=== PATIENT | male | born 1965 | race Caucasian/White ===

== ENCOUNTER 2020-01-27 21:28 | Observation (INO) | payer MEDICARE, SELFPAY ==
[2020-01-27 21:40] VITALS: BP 180/83; PULSE 82; RESP 16; TEMP 37.3; O2SAT 97; BMI 29.0
[2020-01-27 22:14] VITALS: PULSE 80
[2020-01-27 22:19] VITALS: BP 164/84; PULSE 85; RESP 14; O2SAT 98
--- NOTE | 2020-01-27 22:20 | XR_ITS ---
WS: [id number] LEFT FOOT: 3 VIEW(S) TECHNIQUE: AP, oblique and lateral. HISTORY: puncture wound COMPARISON: None available. No acute fracture or dislocation. Normal tarsal/metatarsal alignment. Moderate amount of soft tissue edema surrounding the LEFT foot. There is a linear metallic foreign radha dy measuring 1.8 cm in length in the plantar surface of the foot at the level of the second metatarsa l metaphysis. On the lateral projection this is embedded in the soft tissues approximately 6 mm deep to the surface of the skin. Remote avulsion fracture distal fibula. XR/XR foot LT min 3V* [id number] IMPRESSION: 1. Extensive soft tissue edema surrounding the LEFT foot consistent with cellu litis. 2. Foreign body embedded in the soft tissues plantar surface of the foot at th e level of the second metatarsal metaphysis. Visually appears to be part of a n eedle.
[2020-01-27 23:11] VITALS: BP 171/86; PULSE 93; RESP 14; O2SAT 96
[2020-01-27 23:18] LABS: Basophils % 0.2 %; Eosinophils # 0.1 10^3/uL (0.0-0.8); Eosinophils % 1.1 %; Hematocrit 41.2 % (42.0-52.0); Hemoglobin 13.4 g/dL (11.7-16.6); Lymphocytes # 0.9 10^3/uL (0.8-4.8); Lymphocytes % 10.8 %; Mean Corpuscular HGB Conc 32.5 g/dL (30.0-36.0); Mean Corpuscular Hemoglobin 26.4 pg (28.0-34.0); Mean Corpuscular Volume 81.1 fL (80-94); Mean Platelet Volume 11.4 fL (7.4-10.4); Monocytes # 0.6 10^3/uL (0.2-0.9); Monocytes % 7.2 %; Neutrophils # 6.76 10^3/uL (1.8-7.7); Neutrophils % 80.3 %; Nucleated Red Blood Cells % 0 %; Platelet Count 200 10^3/cmm (130-400); Red Blood Count 5.08 10^6/uL (4.1-5.3); Red Cell Distribution Width 13.1 % (12.1-15.1); White Blood Count 8.4 10^3/uL (4.0-10.0)
[2020-01-27 23:37] LABS: Lactate (Lactic Acid level) 0.9 mmol/L (0.5-2.2)
[2020-01-27 23:39] LABS: Alanine Aminotransferase 26 U/L (0-41); Albumin Level 4.3 g/dL (3.5-5.2); Alkaline Phosphatase 99 IU/L (40-130); Anion Gap 15.2 (5-19); Aspartate Amino Transferase 15 U/L (0-40); Blood Urea Nitrogen 10 mg/dL (6-20); C Reactive Protein 59.5 mg/L (0.0-4.9); Calcium 9.4 mg/dL (8.5-10.5); Carbon Dioxide 24 mmol/L (22-29); Chloride 98 mmol/L (98-107); Creatine Phosphokinase 105 U/L (39-308); Creatinine Clr Calc Pharmacy 150.5413; Globulin 2.8 g/dL (1.3-4.6); Glomerular Filtration Rate 116.7 mL/min (90-130); Glucose 318 mg/dL (65-115); Osmolality Calculated 287 mOsm/kg (285-295); Potassium 4.2 mmol/L (3.5-5.1); Sodium 133 mmol/L (136-145); Total Bilirubin 0.4 mg/dL (0.15-1.2); Total Protein 7.1 g/dL (6.6-8.7)
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
[2020-01-28] VITALS (15 sets, daily range): BP systolic 136–180; BP diastolic 76–89; PULSE 74–91; RESP 16–24; TEMP 36.6–37.6; O2SAT 94–99
--- NOTE | 2020-01-28 | SCC_ITS ---
Procedure Done: Removal of left foot foreign body under fluoroscopic guidance and All entire fluoroscopic interpretation was done by me through the whole entire procedure. 11.0 seconds of fluoroscopic guidance, for a cumulative dose of 0.17 mGy, was provided to Dr. Milligan by the radiology department. C-arm images of the LEFT foot were saved for the patient's permanent record. MARLY
--- NOTE | 2020-01-28 | XR_ITS ---
WS: [id number] C-ARM RADIOGRAPHS LEFT FOOT; 2 IMAGES HISTORY: Foreign body removal. COMPARISON: 01/27/2020 Intraoperative imaging during foreign body removal. XR/XR foot LT 2V [id number] IMPRESSION: Intraoperative imaging for foreign body removal.
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
[2020-01-28] MEDS: ondansetron 2 mg/ML SDV 2 mL 4 MG IVP ×2 (00:17→13:42)
[2020-01-28] MEDS: HYDROmorphone 1 mg/mL INJ 1 mL IVP (00:17)
[2020-01-28 00:25] LABS: Erythrocyte Sedimentation Rate 50 mm/hr (0-10)
--- NOTE | 2020-01-28 01:16 | PC.NURSE ---
patient changed into gown by nurse
[2020-01-28] MEDS: sodium chloride 0.9% 1,000 ML 75 ML IV ×2 (02:10→21:34)
[2020-01-28] MEDS: amoxicillin-clav 875-125 mg Tablet 1 TAB PO (02:11)
[2020-01-28 02:21] LABS: Glucose Point of Care 299 mg/dL (70-110)
[2020-01-28 05:22] LABS: Basophils % 0.2 %; Eosinophils % 0.2 %; Hematocrit 39.5 % (42.0-52.0); Hemoglobin 12.6 g/dL (11.7-16.6); Lymphocytes # 0.8 10^3/uL (0.8-4.8); Lymphocytes % 8.8 %; Mean Corpuscular HGB Conc 31.9 g/dL (30.0-36.0); Mean Corpuscular Hemoglobin 25.8 pg (28.0-34.0); Mean Corpuscular Volume 80.9 fL (80-94); Mean Platelet Volume 11.5 fL (7.4-10.4); Monocytes # 0.4 10^3/uL (0.2-0.9); Monocytes % 4.6 %; Neutrophils # 7.32 10^3/uL (1.8-7.7); Neutrophils % 85.8 %; Nucleated Red Blood Cells % 0 %; Platelet Count 174 10^3/cmm (130-400); Red Blood Count 4.88 10^6/uL (4.1-5.3); White Blood Count 8.5 10^3/uL (4.0-10.0)
[2020-01-28 05:56] LABS: Anion Gap 15.3 (5-19); Blood Urea Nitrogen 10 mg/dL (6-20); Calcium 9.2 mg/dL (8.5-10.5); Carbon Dioxide 23 mmol/L (22-29); Chloride 101 mmol/L (98-107); Creatinine Clr Calc Pharmacy 150.5413; Glomerular Filtration Rate 116.7 mL/min (90-130); Glucose 318 mg/dL (65-115); Osmolality Calculated 291 mOsm/kg (285-295); Potassium 4.3 mmol/L (3.5-5.1); Sodium 135 mmol/L (136-145)
[2020-01-28 06:32] LABS: C Reactive Protein 54.9 mg/L (0.0-4.9)
[2020-01-28 06:34] LABS: Glucose Point of Care 270 mg/dL (70-110)
[2020-01-28 07:19] LABS: Add Urine Microscopic? NO
[2020-01-28 07:30] LABS: Blood Urine Neg (Negative); Glucose Urine UA 4+ (Normal); Ketones Urine 2+ (Negative); Protein Urine Neg (Negative); Urine Appearance Clear (CLEAR); Urine Color Yellow (Yellow); pH Urine 5 (5-7)
[2020-01-28 07:31] LABS: Bilirubin Urine Neg (Negative); Leukocyte Esterase Urine Negative (Negative); Nitrate Urine Negative (Negative); Urobilinogen Urine Norm (Negative)
[2020-01-28] MEDS: gabapentin 400 mg Capsule 800 MG PO ×3 (08:14→21:32)
[2020-01-28] MEDS: sennosides-docusate Tablet 1 TAB PO (08:14)
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
--- NOTE | 2020-01-28 08:50 | PC.NURSE ---
signed consent in file for removal of left foot foreign body
[2020-01-28 10:38] LABS: Glucose Point of Care 248 mg/dL (70-110)
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
--- NOTE | 2020-01-28 10:57 | PC.NURSE ---
patient off unit to OR
[2020-01-28] MEDS: sodium chloride 0.9% 1,000 ML 30 ML IV (11:12)
--- NOTE | 2020-01-28 11:57 | P.PN_ITS ---
Subjective Subjective: Interval history: History and physical was reviewed. Patient reports left foot still hurts. I contacted surgery this morning and he is scheduled for exploration and foreign body removal. Medications: Reviewed: Yes Vitals/I&O/Wt Last Vital Signs Temp 98.6 F 01/28/20 10:48 Pulse 75 01/28/20 10:48 Resp 18 01/28/20 10:48 BP 180/87 01/28/20 10:48 Pulse Ox 97 01/28/20 10:48 01/27/20 01/28/20 01/28/20 22:59 06:59 14:59 Intake Total 250 / 250 Output Total 500 / 500 Balance 250 / 250 -500 / -500 Weight last 48 hrs Weight 102.512 kg Physical Exam Narrative: EXAM NARRATIVE: General exam is no apparent distress Cardiovascular regular rate and rhythm without murmur Lungs clear Abdomen is soft, positive bowel sounds Extremities no cyanosis clubbing. Edema noted left foot with erythema consistent with cellulitis. It is difficult to see any puncture wound. Pulses intact. Data : 01/28/20 04:45 01/28/20 04:45 Micro: Microbiology 01/27/20 22:47 Blood Culture - Preliminary Blood SPECIMEN COLLECTED 01/27/20 22:47 Blood Culture - Preliminary Blood SPECIMEN COLLECTED A&P Assessment and plan (1) Foreign body in foot: I contacted surgery this morning. He will be going to the OR. Status: Acute (2) Cellulitis: Discontinue oral antibiotics as he has had some vomiting. Initiate vancomycin Status: Acute Additional A&P Information Type 2 diabetes, sliding scale insulin Elevated blood pressure. Calazime as needed currently. Hyperlipidemia Full code DVT prophylaxis has been held secondary to procedure pending Attestations Medical Necessity Statement*: Needs continued hospitalization for IV antibiotics secondary to cellulitis. Coding Level of Care Code Acute Seafood Preparer for Niko Riddle Diagnoses Foreign body in foot S90.859A Cellulitis L03.90
[2020-01-28] MEDS: neomycin-poly-bacitracin oint 28 gm 1 APPLIC TOPICAL (12:05)
[2020-01-28] MEDS: lidocaine 2% INJ 20 mL INJECTION (12:06)
--- NOTE | 2020-01-28 12:09 | PM.OP ---
Operative Report Date of procedure: January 28, 2020 Pre-op Diagnosis: Foreign body Post-op diagnosis: same Post-op Diagnosis: Broken retained sewing needle Procedure Done: Removal of left foot foreign body under fluoroscopic guidance and All entire fluoroscopic interpretation was done by me through the whole entire procedure. Specimens removed/disposition: Sewing needle for gross pathology Surgeon: [employer] Truck Driver: technology applications teacher Juan Circulating nurse Urvashi Anesthesia: MAC (concrete boom pump operator Peyman) Estimated blood loss (mL): 5 Condition: stable Disposition: floor Brief History: Retained foreign body status post trauma Procedure: After identifying the patient holding area, and the left foot was marked by me. The, patient was then taken to the operative suite, was placed in supine position, IV propofol was infused by the anesthesia provider a patient was already on therapeutic antibiotics, prep and drape of left foot and lower leg till below the knee done under the usual sterile technique. Time-out was done verifying the patient's name/date of /planned procedure and destination after the procedure, all were in agreement Lidocaine 2% injection was done at the site of the entrance of the needle. Started by fluoroscopic guidance pointing out with a hemostat at the site of entrance and location of the needle. Longitudinal skin incision was created using 15 blade knife and further dissection towards the subcutaneous layer using a hemostat the needle was retrieved and appears to be having an thread on it. That was all taken out and sent for gross pathology and under fluoroscopic guidance with all interpretation was done by me through the whole entire procedure, there was no remaining foreign bodies retained. Copious irrigation of the wound was done followed by closure by 3-0 Prolene then triple antibiotic ointment and dry pressure dressing and Kerlix. Patient tolerated the procedure well, count of instruments ,needles and sponges were completed at the end of the procedure. And then patient was taken to the recovery area in stable condition. I Was present for the whole entire procedure Associated Problem List Diagnoses (1) Foreign body in foot:
--- NOTE | 2020-01-28 12:18 | PM.PACU ---
PACU note Post-Anesthesia Exam: awake and vital signs stable Disposition: back to floor
--- NOTE | 2020-01-28 12:19 | SUR.PHASEI ---
PT AWAKE ALERT , TALKATIVE ON RA PT DENIES PAIN VSS. PT WAS ONLY A MAC SEDATION , WILL CALL REPORT TO FLOOR DR STOVALL AT BEDSIDE.
--- NOTE | 2020-01-28 12:38 | PC.NURSE ---
patient arrived on unit.
[2020-01-28 16:45] LABS: Glucose Point of Care 239 mg/dL (70-110)
[2020-01-28] MEDS: insulin glargine 100 units/1 mL 10 UNIT SUBCUT (21:35)
[2020-01-28 21:45] LABS: Glucose Point of Care 279 mg/dL (70-110)
[2020-01-29] VITALS: BP 143/76; PULSE 82; RESP 18; TEMP 37.5; O2SAT 95
[2020-01-29 02:38] LABS: Basophils % 0.2 %; Eosinophils % 0.4 %; Hematocrit 41.6 % (42.0-52.0); Hemoglobin 13.6 g/dL (11.7-16.6); Lymphocytes % 11.4 %; Mean Corpuscular HGB Conc 32.7 g/dL (30.0-36.0); Mean Corpuscular Hemoglobin 26.3 pg (28.0-34.0); Mean Corpuscular Volume 80.5 fL (80-94); Mean Platelet Volume 11.7 fL (7.4-10.4); Monocytes # 0.7 10^3/uL (0.2-0.9); Monocytes % 8.4 %; Neutrophils # 6.63 10^3/uL (1.8-7.7); Neutrophils % 79.4 %; Nucleated Red Blood Cells % 0 %; Platelet Count 151 10^3/cmm (130-400); Red Blood Count 5.17 10^6/uL (4.1-5.3); Red Cell Distribution Width 13.1 % (12.1-15.1); White Blood Count 8.4 10^3/uL (4.0-10.0)
[2020-01-29 03:12] LABS: Blood Urea Nitrogen 10 mg/dL (6-20); Calcium 8.7 mg/dL (8.5-10.5); Carbon Dioxide 24 mmol/L (22-29); Chloride 98 mmol/L (98-107); Glucose 235 mg/dL (65-115); Osmolality Calculated 283 mOsm/kg (285-295); Sodium 133 mmol/L (136-145)
[2020-01-29 03:13] LABS: Anion Gap 15.1 (5-19); Potassium 4.1 mmol/L (3.5-5.1)
[2020-01-29 04:00] VITALS: BP 138/69; PULSE 82; RESP 20; TEMP 37.3; O2SAT 94
--- NOTE | 2020-01-29 06:18 | PM.PN ---
Subjective Subjective: Interval history: Patient overall feels better Vitals/I&O/Wt Last Vital Signs Temp 99.2 F 01/29/20 04:00 Pulse 82 01/29/20 04:00 Resp 20 H 01/29/20 04:00 BP 138/69 01/29/20 04:00 Pulse Ox 94 01/29/20 04:00 01/28/20 01/28/20 01/29/20 14:59 22:59 06:59 Intake Total 300 / 300 1560 / 1860 550 / 2410 Output Total 500 / 500 350 / 850 300 / 1150 Balance -200 / -200 1210 / 1010 250 / 1260 Weight last 48 hrs Weight 226 lb Physical Exam Narrative: EXAM NARRATIVE: Patient is conscious alert oriented X3 BMI 29 Left foot showing less cellulitis at the midportion of the foot with less swelling, incision is clean dry and intact and sutures in place. Data : 01/29/20 02:10 01/29/20 02:10 Micro: Microbiology 01/27/20 22:47 Blood Culture - Preliminary Blood NEGATIVE TO DATE 01/27/20 22:47 Blood Culture - Preliminary Blood NEGATIVE TO DATE A&P Assessment and plan (1) Foreign body in foot: From surgical standpoint of view patient should have an nonweight bearing of the left forefoot per physical therapy Patient can be discharged home today on oral antimicrobial therapy will defer to Dr. Xiao Return to surgery office in 10 days for removal of sutures Education with regard diabetes management and control Assurance and education All questions have been answered and all concerns have been addressed to patient's satisfaction. Thank you for consulting general surgery to participate taking care Mr. Howard Status: Resolved Attestations Medical Necessity Statement*: Patient can be discharged home from surgical standpoint of view, will defer to hospitalist service for further inpatient care. Time Spent in Patient Care: (>than 50% of time spent in counselling and/or direct pt care on unit). Coding Level of Care Code Acute Construction Project Coordinator for Chg Fwd Diagnoses Foreign body in foot S90.859A
--- NOTE | 2020-01-29 06:32 | PC.NURSE ---
SHIFT SUMMARY Had a good night without c/o pain in left foot. Bulky drsg/kerlex wrap dry & intact. Dr Milligan in this am and removed dressing. Foot is edematous with redness but both Dr and pt say is much improved. Discharge for today. Covaderm dressing placed to incision bottom of foot. IV fluids infusing without difficulty.
[2020-01-29 06:39] LABS: Glucose Point of Care 218 mg/dL (70-110)
[2020-01-29 07:19] VITALS: BP 148/75; PULSE 84; RESP 16; TEMP 37.2; O2SAT 97
[2020-01-29] MEDS: gabapentin 400 mg Capsule 800 MG PO (07:52)
[2020-01-29] MEDS: sennosides-docusate Tablet 1 TAB PO (07:53)
[2020-01-29 08:27] LABS: Vancomycin Trough 13.5 ug/mL (10-15)
--- NOTE | 2020-01-29 09:59 | ANE.PACU2 ---
Inpatient post-anesthesia follow up: Airway intact: Yes Vital signs: Temperature 99.0 F Pulse Rate [Monito r] 80 Pulse Rate 84 Respiratory Rate 16 Blood Pressure [Le ft Arm] 180/83 Blood Pressure 148/75 Pulse Oximetry 97 Oxygen Delivery Me thod Room Air Oxygen Flow Rate Fraction of Inspir ed Oxygen 21 Hydration adequate: Yes Nausea and vomiting: No Pain level: 2 Mental status: Baseline
--- NOTE | 2020-01-29 10:50 | PM.DCS ---
Discharge Providers Date of Admission: 01/28/20 00:19 Date of Discharge: January 29, 2020 Attending Provider at Admission: Errol Miguel MD Attending Provider at Discharge: Tay Xiao MD Primary Care Provider: Adalberto Lara MD Diagnoses at Discharge Discharge Diagnosis (1) Foreign body in foot: Status: Resolved Problem details: Removed January 27 Reason for Visit Reason for Visit: stepped on something went through foot Hospital Course Hospital Course: Bashir is a 54-year-old white male diabetic who presented to the emergency department with history of stepping on a foreign body, perhaps a week earlier. He was having swelling, and erythema in his foot. He was placed on antibiotics, converting to IV antibiotics. Surgery was consulted secondary to the foreign body. On January 27 he was taken to surgery for exploration and removal of the foreign body which was successful. The following day his foot was much less swollen, and much less erythematous. He had remained afebrile. Blood culture was negative to date. White blood cell count was normal. It was thought he could be discharged home, for 7-day course of Bactrim with follow-up with general surgery as well as his primary care provider. Physical Exam Narrative: EXAM NARRATIVE: General exam no apparent distress Cardiovascular regular rate and rhythm without murmur Lungs clear Abdomen is soft positive bowel sounds Left lower extremity with surgical dressing. Slight erythema around surgical area. Significant reduction in swelling, now currently trace in the left ankle. Discharge Data Data Completed and Pending: Completed Studies During Hospitalization Category Date Time Status XR foot LT 2V 736 20 Routine Exams 01/28/20 Completed XR foot LT min 3V * [id number] Stat Exams 01/27/20 22:20 Completed Pending at discharge Category Date Time Status Blood Culture Sta t Lab 01/27/20 22:47 Results Vancomycin Trough Timed Lab 01/30/20 08:00 Ordered Pathology: Surgic al [PTH] Routine Pth 01/28/20 12:24 Received Labs from last 24 hours 01/29/20 01/29/20 01/29/20 07:53 06:13 02:10 WBC RBC Hgb Hct MCV MCH MCHC RDW Plt Count MPV Neut % (Auto) Lymph % (Auto) [place] % (Auto) Eos % (Auto) Baso % (Auto) Neut # (Auto) Lymph # (Auto) [place] # (Auto) Eos # (Auto) Baso # (Auto) Nucleated RBC % (a uto) Nucleated RBCs # Sodium 133 L Potassium 4.1 Chloride 98 Carbon Dioxide 24 Anion Gap 15.1 BUN 10 Creatinine 0.8 GFR Calculation 100.0 Glucose 235 H POC Glucose 218 Calculated Osmolal ity 283 L Calcium 8.7 Vancomycin Trough 13.5 01/29/20 01/28/20 01/28/20 02:10 21:26 16:33 WBC 8.4 RBC 5.17 Hgb 13.6 Hct 41.6 L MCV 80.5 MCH 26.3 L MCHC 32.7 RDW 13.1 Plt Count 151 MPV 11.7 H Neut % (Auto) 79.4 Lymph % (Auto) 11.4 [place] % (Auto) 8.4 Eos % (Auto) 0.4 Baso % (Auto) 0.2 Neut # (Auto) 6.63 Lymph # (Auto) 1.0 [place] # (Auto) 0.7 Eos # (Auto) 0.0 Baso # (Auto) 0.0 Nucleated RBC % (a uto) 0 Nucleated RBCs # 0.0 Sodium Potassium Chloride Carbon Dioxide Anion Gap BUN Creatinine GFR Calculation Glucose POC Glucose 279 239 Calculated Osmolal ity Calcium Vancomycin Trough Vitals: Last Vital Signs Temp 99.0 F 01/29/20 07:19 Pulse 84 01/29/20 07:19 Resp 16 01/29/20 07:19 BP 148/75 01/29/20 07:19 Pulse Ox 97 01/29/20 07:19 Discharge Plan Discharge Patient Disposition: Home Condition: Stable Prescriptions: New sulfamethoxazole-trimethoprim [Bactrim DS] 800-160 mg tablet 1 tab PO BID 7 Days Qty: 14 RF: 0 Continued metformin 500 mg tablet 500 mg PO BID RF: 0 gabapentin 800 mg tablet 800 mg PO TID RF: 0 Humulin 70/30 U-100 Insulin 100 unit/mL (70-30) suspension 1 sliding scale dose SUBCUT TID RF: 0 lisinopril 20 mg tablet 20 mg PO DAILY RF: 0 aspirin 81 mg Tablet,Chewable 81 mg PO DAILY RF: 0 rosuvastatin 40 mg tablet 40 mg PO DAILY RF: 0 Discharge Orders: Discharge Order (Routine); Ordered 01/29/20 Ordered By: Tay Xiao Referrals: Eusebio Milligan MD [Physician] - (Return to surgery office in 10 days) Adalberto Lara MD [Primary Care Provider] - 4-7 days Discharge Diet: Diabetic Discharge Activity: Use walker/crutches as instructed Activity Restrictions/Additional Instructions: Activity instructions and wound care per surgery Take antibiotic as prescribed Follow-up with primary care provider as well as general surgeon. Return for any worsening. Discharge Attestations Time Spent in Discharge Care*: greater than 30 min Quality Metrics Clinical Quality Measures During this hospital stay, did patient experience: None Coding Level of Care Code Acute [place] for Chg Fwd Diagnoses Foreign body in foot S90.858P
[2020-01-29 11:29] LABS: Glucose Point of Care 280 mg/dL (70-110)
[2020-01-29 13:00] VITALS: BP 148/75; PULSE 84; RESP 16; TEMP 37.2; O2SAT 97
== END 2020-01-29 12:00 | disposition home or self-care (01) ==
LOC: ER 23:55 → MEDSURG 01-28 00:59
PROVIDERS: Emergency Medicine; Surgery; Admitting Provider Internal Medicine; PCP Family Medicine; Visit Provider Internal Medicine
PROC: (CPT 28190; principal; 2020-01-28 11:30)
DX: S90.852A Superficial foreign body, left foot, initial encounter (principal); E11.9 Type 2 diabetes mellitus without complications; Z79.4 Long term (current) use of insulin; Z79.82 Long term (current) use of aspirin; L03.90 Cellulitis, unspecified; I10 Essential (primary) hypertension; E78.5 Hyperlipidemia, unspecified; Z86.73 Personal history of transient ischemic attack (TIA), and cerebral infarction without residual deficits
CPT/HCPCS: 28190; 12345; 36415; 36416; 73620; 73630; 76000; 80048; 80053; 80202; 81003; 82550; 82962; 83605; 85025; 85651; 86140; 87040; 88300; 96361; 96365; 96366; 96372; 96375; 97161; 99283; 99285; G0378; J0690; J1170; J1815 ×2; J2405; J2704; J3010; J3370; J7030; J7050

== ENCOUNTER 2020-02-01 11:38 | Inpatient (IN) | payer MEDICARE, SELFPAY ==
[2020-02-01] VITALS (7 sets, daily range): BP systolic 146–171; BP diastolic 72–97; PULSE 80–87; RESP 16–18; TEMP 36.9–37.7; O2SAT 93–97; BMI 29.4
--- NOTE | 2020-02-01 12:01 | CTR_ITS ---
PROCEDURE INFORMATION: Exam: CT Left Lower Extremity With Contrast, Foot Exam date and time: 02/01/2020 12:37 PM Age: 54 years old Clinical indication: Prior surgery; Surgery date: Post-operative (0-2 days); Surgery type: Left foot post op pain and cellulitis TECHNIQUE: Imaging protocol: CT of the Left lower extremity with intravenous contrast was performed. Exam focused on the foot. Radiation optimization: All CT scans at this facility use at least one of these dose optimization techniques: automated exposure control; mA and/or kV adjustment per patient size (includes targeted exams where dose is matched to clinical indication); or iterative reconstruction. Contrast material: OMNI 300; Contrast volume: 95 ml; Contrast route: INTRAVENOUS (IV); COMPARISON: OT XR foot LT 2V [id number] 01/28/2020 11:57 AM RADIATION DOSE METRICS: Total DLP (mGy-cm): 153.72 FINDINGS: Bones/joints: See Soft tissues finding. Soft tissues: 1.6 x 0.7 x 0.8 cm soft tissue defect in the plantar surface of the foot deep to the 2nd and 3rd MTP joints consistent with ulceration versus postoperative defect. Edema and soft tissue emphysema over the plantar soft tissues in the forefoot deep to the 2nd and 3rd metatarsals with some air in the soft tissues between the 1st and 2nd tarsal phalangeal joints. Cellulitis versus postoperative change versus developing necrotizing fasciitis. Possible 1.6 x 1.4 x 0.7 cm loculated abscess with some air bubbles in the plantar soft tissues , half way between the plantar surface of the foot and the 3rd metacarpal bone. Axial series 3, image 105, sagittal series 401, images 33-35. CT/CT foot LT w con [id number] IMPRESSION: 1. 1.6 x 0.7 x 0.8 cm soft tissue defect in the plantar surface of the foot deep to the 2nd and 3rd MTP joints consistent with ulceration versus postoperative defect. 2. Edema and soft tissue emphysema over the plantar soft tissues in the forefoot deep to the 2nd and 3rd metatarsals with some air in the soft tissues between the 1st and 2nd tarsal phalangeal joints. Cellulitis versus postoperative change versus developing necrotizing fasciitis. 3. Possible 1.6 x 1.4 x 0.7 cm loculated abscess with some air bubbles in the plantar soft tissues , half way between the plantar surface of the foot and the 3rd metacarpal bone. Axial series 3, image 105, sagittal series 401, images 33-35. Radiation Dose CTDIVOL = (mGy): DLP = 153.72 (mGy-cm)
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
[2020-02-01] MEDS: vancomycin 1,000 MG in sodium chloride 0.9% 250 ML 250 MG IV (12:21)
[2020-02-01 12:40] LABS: Basophils % 0.3 %; Eosinophils # 0.1 10^3/uL (0.0-0.8); Eosinophils % 0.9 %; Hematocrit 43.1 % (42.0-52.0); Lymphocytes # 1.2 10^3/uL (0.8-4.8); Lymphocytes % 11.9 %; Mean Corpuscular HGB Conc 32.5 g/dL (30.0-36.0); Mean Platelet Volume 10.8 fL (7.4-10.4); Monocytes # 0.7 10^3/uL (0.2-0.9); Monocytes % 6.7 %; Neutrophils # 8.17 10^3/uL (1.8-7.7); Neutrophils % 79.9 %; Nucleated Red Blood Cells % 0 %; Platelet Count 283 10^3/cmm (130-400); Red Blood Count 5.39 10^6/uL (4.1-5.3); White Blood Count 10.2 10^3/uL (4.0-10.0)
--- NOTE | 2020-02-01 12:49 | P.PN_ITS ---
Subjective Subjective: Interval history: This is a pleasant 54 years old gentleman recently discharged from the hospital after removal of a foreign body of the left foot in the form of a needle few days ago. Patient had stepped on a foreign body about 10 days ago and then presented later on to the hospital was admitted to the hospitalist service and general surgery was consulted. Patient was placed on IV antibiotics and was taken to surgery where there were no wounds seen yet under fluoroscopic guidance a small incision was created and the broken needle was retrieved and sent for gross pathology. Pathology report showed; Foot, left, foreign body removal: ?Silver cylindrical object, consistent with foreign body. Patient was closed and the patient was discharged the following day per h ospitalist service, following that it seems that the patient started to develop worsening symptoms of the left foot in the form of swelling and cellulitis so he was guided by his primary care provider to go to the ER for further evaluation. I was consulted by the ER team today to evaluate the patient, patient was seen and evaluated in room #3 in the ER. Where the sutures were removed and there w as purulent discharge that was swabbed and sent for cultures and sensitivities. Followed by packing. Vitals/I&O/Wt Last Vital Signs Temp 98.5 F 02/01/20 11:48 Pulse 80 02/01/20 11:48 Resp 18 02/01/20 11:48 BP 158/77 02/01/20 11:48 Pulse Ox 93 02/01/20 11:48 Weight last 48 hrs Weight 229 lb Physical Exam Narrative: EXAM NARRATIVE: Patient is conscious alert oriented X3 BMI 29.4 Left foot showing dorsal cellulitis at the midportion of the foot with swelling, including maceration of the skin at the sole of the foot and incision showed sutures in place yet upon pressure serous fluid was obtained. Intact left dorsalis pedis artery well palpable bedside Data : 02/01/20 12:09 02/01/20 12:09 A&P Assessment and plan (1) Diabetic foot infection: Removal of the sutures bedside and drainage was obtained in addition to swab for cultures and sensitivities Packing was done Followed by DONNELL and Chinmay Broad-spectrum IV antibiotics Diabetes management and control per hospitalist service We will plan to take the patient for surgery to perform I&D of left diabetic foot abscess Highly recommend to obtain a CT scan of the left foot with IV contrast to assess for any potential underlying pockets of abscess formation otherwise not appreciated clinically. Patient is posted for surgery tomorrow Indications, risks, benefits and alternatives all discussed with the patient and his spouse and he agreed to proceed accordingly. Informed consent per chart Status: Acute Attestations Medical Necessity Statement*: Inpatient admission for diabetes control and wound care. Time Spent in Patient Care: (>than 50% of time spent in counselling and/or direct pt care on unit) . Coding Level of Care Code Acute Slabbing Machine Operator for Niko Riddle Diagnoses Diabetic foot infection E11.628; L08.9
[2020-02-01 12:52] LABS: Alanine Aminotransferase 26 U/L (0-41); Albumin Level 3.5 g/dL (3.5-5.2); Alkaline Phosphatase 103 IU/L (40-130); Anion Gap 14.6 (5-19); Aspartate Amino Transferase 20 U/L (0-40); Blood Urea Nitrogen 10 mg/dL (6-20); Carbon Dioxide 24 mmol/L (22-29); Chloride 95 mmol/L (98-107); Creatinine Clr Calc Pharmacy 117.7934; Globulin 3.7 g/dL (1.3-4.6); Glomerular Filtration Rate 87.3 mL/min (90-130); Glucose 308 mg/dL (65-115); Osmolality Calculated 279 mOsm/kg (285-295); Potassium 4.6 mmol/L (3.5-5.1); Sodium 129 mmol/L (136-145); Total Bilirubin 0.2 mg/dL (0.15-1.2); Total Protein 7.2 g/dL (6.6-8.7)
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
[2020-02-01] MEDS: iohexol 300 mg/mL 100 mL Btl IV (13:39)
[2020-02-01 13:41] LABS: Procalcitonin 0.07 ng/mL (0-0.5)
[2020-02-01 13:52] LABS: Iron 22 ug/dL (59-158); Percent Saturation 10.3 % (20-50); Total Iron Binding Capacity 212 mcg/dl; Unsaturated Iron Binding 190 ug/dL (112-347)
[2020-02-01 15:13] LABS: C Reactive Protein 88.3 mg/L (0.0-4.9)
[2020-02-01 15:45] LABS: Erythrocyte Sedimentation Rate 78 mm/hr (0-10)
[2020-02-01] MEDS: sodium chloride 0.9% 1,000 ML 50 ML IV (16:24)
[2020-02-01] MEDS: piperacillin-tazobactam 3.375 GM in sodium chloride 0.9% (plus) 50 ML IV ×2 (16:25→23:27)
[2020-02-01] MEDS: gabapentin 400 mg Capsule 800 MG PO ×2 (16:25→20:46)
[2020-02-01 17:01] LABS: Glucose Point of Care 270 mg/dL (70-110)
[2020-02-01 20:41] LABS: Glucose Point of Care 301 mg/dL (70-110)
[2020-02-02] VITALS (14 sets, daily range): BP systolic 122–166; BP diastolic 66–85; PULSE 67–81; RESP 18; TEMP 36.4–37.6; O2SAT 94–98
[2020-02-02 05:16] LABS: Basophils % 0.3 %; Eosinophils # 0.1 10^3/uL (0.0-0.8); Eosinophils % 1.4 %; Hematocrit 37.2 % (42.0-52.0); Lymphocytes # 1.3 10^3/uL (0.8-4.8); Lymphocytes % 14.6 %; Mean Corpuscular HGB Conc 32.3 g/dL (30.0-36.0); Mean Corpuscular Hemoglobin 25.9 pg (28.0-34.0); Mean Corpuscular Volume 80.3 fL (80-94); Mean Platelet Volume 10.7 fL (7.4-10.4); Monocytes # 0.7 10^3/uL (0.2-0.9); Monocytes % 7.6 %; Neutrophils % 75.8 %; Nucleated Red Blood Cells % 0 %; Platelet Count 231 10^3/cmm (130-400); Red Blood Count 4.63 10^6/uL (4.1-5.3); Red Cell Distribution Width 12.9 % (12.1-15.1); White Blood Count 8.8 10^3/uL (4.0-10.0)
[2020-02-02 05:34] LABS: Alanine Aminotransferase 39 U/L (0-41); Albumin Level 3.1 g/dL (3.5-5.2); Alkaline Phosphatase 105 IU/L (40-130); Aspartate Amino Transferase 31 U/L (0-40); Blood Urea Nitrogen 12 mg/dL (6-20); Calcium 8.8 mg/dL (8.5-10.5); Carbon Dioxide 26 mmol/L (22-29); Chloride 96 mmol/L (98-107); Creatinine Clr Calc Pharmacy 151.4487; Globulin 3.2 g/dL (1.3-4.6); Glomerular Filtration Rate 116.7 mL/min (90-130); Glucose 273 mg/dL (65-115); Osmolality Calculated 275 mOsm/kg (285-295); Phosphorus 3.9 mg/dL (2.5-4.5); Sodium 128 mmol/L (136-145); Total Bilirubin 0.2 mg/dL (0.15-1.2); Total Protein 6.3 g/dL (6.6-8.7)
[2020-02-02 05:38] LABS: Anion Gap 10.7 (5-19); Potassium 4.7 mmol/L (3.5-5.1)
[2020-02-02 05:45] LABS: INR 1.04 (0.8-1.2)
[2020-02-02 06:03] LABS: Glucose Point of Care 259 mg/dL (70-110)
--- NOTE | 2020-02-02 06:04 | PM.PN ---
Subjective Subjective: Interval history: Patient overall feels better. No acute events overnight Vitals/I&O/Wt Last Vital Signs Temp 98.7 F 02/02/20 04:00 Pulse 78 02/02/20 04:00 Resp 18 02/02/20 04:00 BP 166/77 02/02/20 04:00 Pulse Ox 94 02/02/20 04:00 02/01/20 02/01/20 02/02/20 14:59 22:59 06:59 Intake Total 420 / 420 Output Total 400 / 400 Balance Weight last 48 hrs Weight 229 lb Physical Exam Narrative: EXAM NARRATIVE: Patient is conscious alert oriented X3 BMI 29.4 Left foot dressing stable, I was able to appreciate less cellulitis on taking down the dressing and packing in place. Data : 02/02/20 05:00 02/02/20 05:00 Micro: Microbiology 02/01/20 13:20 Blood Culture - Preliminary Blood SPECIMEN COLLECTED 02/01/20 13:20 Blood Culture - Preliminary Blood SPECIMEN COLLECTED A&P Assessment and plan (1) Diabetic foot infection: We will plan to take the patient for I&D of left foot abscess today in the OR. Informed consent per chart We will check glucose level and insulin dosages and coordinate with anesthesia prior to surgery. Assurance and education All questions have been answered and all concerns have been addressed to patient's satisfaction. Status: Acute Attestations Medical Necessity Statement*: Patient likely will require inpatient hospitalization past 2 midnights for IV antimicrobial therapy and hyperglycemia management Time Spent in Patient Care: (>than 50% of time spent in counselling and/or direct pt care on unit). Coding Level of Care Code Acute Mechanical Engineering Director for Niko Riddle Diagnoses Diabetic foot infection E11.628; L08.9
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
[2020-02-02] MEDS: insulin regular-human 6 UNIT in SYRINGE 1 EACH 1 UNIT IVP (08:20)
--- NOTE | 2020-02-02 08:36 | PM.OP ---
Operative Report Date of procedure: February 02, 2020 Pre-op Diagnosis: Left diabetic foot abscess Post-op diagnosis: same Post-op Findings: Pre-debridement measurements 2.2 x 0.3 x 1.2 cm Post-debridement measurements 11.5 x 2 x 2 cm Procedure Done: Incision and drainage of left diabetic foot abscess Sharp debridement of the abscess cavity all the way to the musculofascial layer Implants: Large piece of Surgicel Packing with mini Kerlix impregnated and lidocaine 2% Specimens removed/disposition: Specimen #1 tissues for cultures and sensitivities. Specimen #2 tissues for pathology of the abscess wall Specimen #3 swabs for cultures and sensitivities aerobic and anaerobic. Surgeon: Eusebio Milligan Thread Cutter Tender: Surgical jie Bianchi Circulating nurse Imani Anesthesia: MAC (traffic controller cable Smart) Estimated blood loss (mL): 5 Condition: stable Disposition: floor Brief History: This is a pleasant 54 years old gentleman with uncontrolled diabetes mellitus type 2 presents to the ER left diabetic foot abscess status post stepping on a broken needle and was removed. The patient developed worsening cellulitis and abscess formation.. After thorough history physical examination and reviewing the chart and images of the CT scan with my personal interpretation I did marriage counselor minister the patient and spouse for incision and drainage of left diabetic foot abscess in the OR. With the potential need for future surgeries and high risk of amputee. Patient agreed to proceed and informed consent per chart Procedure: Patient after being identified in the holding area and his left lower extremity was marked by me, an informed consent per chart ,patient was then taken back to the OR placed in supine position IV propofol was infused by the anesthesia provider. Time-out was done verifying the patient's name/date of /planned procedure and destination after the procedure, all were in agreement.preoperative antibiotics administered per protocol, and beta mik protocol was confirmed. prep and drape of the left lower extremity was done under the usual sterile technique. Already existing incision at the base of the second and third toes of the left foot was drooling purulent discharge the packing was removed before the prep and drape by me.I extended the incision cephalad and caudad and pockets of pus were drained and necrotic tissues were debrided sharply all the way to the musculofascial layer.Macerated skin was removed as well. Swabs were taken for cultures and sensitivities as well as tissues for cultures and sensitivities. An elliptical longitudinal skin incision was done to include the necrotic skin and subcutaneous and was sent for pathology. Copious irrigation using a Pulsavac of 3 L of warm saline was achieved, followed by appropriate hemostasis using Bovie cauterization.Placement of large piece of Surgicel.Followed by Gentle packing of the wound was done by wet-to-dry mini Kerlix impregnated and lidocaine 2%, by application of dry ABDs, Kerlix wrap, then JANNA wrap. Count was completed of needles,instruments and sponges at the end of the procedure. I was present for the whole entire procedure Patient was then taken to the recovery in stable condition
--- NOTE | 2020-02-02 08:49 | PM.PACU ---
PACU note PACU note: alert good resp effort VSS Post-Anesthesia Exam: awake and vital signs stable Disposition: back to floor
[2020-02-02 08:54] LABS: Glucose Point of Care 238 mg/dL (70-110)
--- NOTE | 2020-02-02 09:25 | SUR.PHASEI ---
0840 pt to pacu awake alert on ra talkative denies pain dressing to foot d/i , pt now to floor per cart , moves self to bed alert requests breakfast, handoff to nurse at nursing station , all questions answered and info on last tracer and IV INSULIN GIVEN IN OR.
[2020-02-02] MEDS: HYDROcodone-acetaminophen 5-325 mg Tablet 1 TAB PO (09:39)
[2020-02-02] MEDS: sodium chloride 0.9% 1,000 ML 50 ML IV (09:40)
[2020-02-02 11:24] LABS: Glucose Point of Care 305 mg/dL (70-110)
--- NOTE | 2020-02-02 11:36 | PC.CHAP ---
Pastoral Care Encounter/Spiritual Assessment Type of Contact [] Declined polymerization helper visit [] Patient/Family/Request visit [] Outpatient visit [] Follow-up visit [] Physician referral [] Code/Alert [X] Routine visit [] Staff referral [] Actively dying [] Patient sleeping [] Family support [] [] Out of room [] Palliative care [] [] Receiving care in room [] Pre-surgical visit [] Trauma [] Long length of stay [] ICU visit [] Other: Relational/Emotional Strength [] Patient feels connected with others/family/visitors/staff [] Distress [] Loneliness/isolation [] Abandonment Spirituality of Patient [] Person of Kristie [] Attends [employer]ian of their Kristie [] Believes in Prayer [] Reads Bible or Adventism materials [] There are Spiritual issues to be addressed Yard Jockey Interventions [] Prayer [] Active listening [] Non-anxious presence [] Spiritual/emotional support [] Crisis/trauma care [] Spiritual counseling [] Bereavement support [] Provided bereavement packet [] Provided Bible/devotional materials [] Provided toy/stuffed animal, coloring book to patient or family member [] Provided Communion [] Anointing/[place] [] Salvation [] Completed spiritual assessment [] Other: Impact on Illness or Injury [] Angry [] Fearful [] Anxious [] Often cries [] Exhaustion [] Unable to work [] Unable to attend nondenominational [] Unable to walk/stand [] Unable to read [] Unable to drive [] Unable to eat/drink [] Unable to sleep [] Unable to be with family [] Patient intubated [] Other: Summary Time spent with patient
--- NOTE | 2020-02-02 12:42 | PM.PN ---
Subjective Subjective: Interval history: Patient seen postop day. He continues to remain comfortable. Denies of having any nausea, vomiting, headache. He tolerated procedure well. Labs and vitals noted. Has been afebrile. Vitals/I&O/Wt Last Vital Signs Temp 97.7 F 02/02/20 11:14 Pulse 67 02/02/20 11:14 Resp 18 02/02/20 11:14 BP 134/71 02/02/20 11:14 Pulse Ox 95 02/02/20 11:14 02/01/20 02/02/20 02/02/20 22:59 06:59 14:59 Intake Total 420 / 420 250 / 670 1223.393 / 1223.393 Output Total 400 / 400 900 / 900 Balance 250 / 270 323.393 / 323.393 Weight last 48 hrs Weight 103.873 kg Weight 103.873 kg Physical Exam Narrative: EXAM NARRATIVE: General: No acute distress, AO x3 HEENT: PERRLA, pupils bilaterally equal and reactive Chest: Normal vesicular breath sounds, no added sounds, equal good air entry bilaterally CVS: S1-S2 regular, no murmurs, no tachycardia, no gallops, no rubs Abdomen: Soft, nontender, no organomegaly, bowel sounds present Neuro: No focal deficits, no facial deformity, AO x3, power 5/5 in all limbs Left foot surgically bandaged by Dr. Milligan, no soakage in all toes, capillary refill normal in all toes. Data : 02/02/20 05:00 02/02/20 05:00 Micro: Microbiology 02/01/20 13:20 Blood Culture - Preliminary Blood SPECIMEN COLLECTED 02/01/20 13:20 Blood Culture - Preliminary Blood SPECIMEN COLLECTED A&P Assessment and plan (1) Diabetic foot infection: Status: Acute (2) Cellulitis: Status: Acute (3) Diabetes: Status: Acute (4) Hypertension: Status: Acute (5) Hyponatremia: Status: Acute Additional A&P Information Cellulitis/diabetic foot: Recent foreign body removal a week ago sent home on Bactrim. Osteomyelitis ruled out. Post debridement for multiple abscesses. Continue with vancomycin and Zosyn for now. We will continue to follow cultures and most likely discharge him on Augmentin and Levaquin tomorrow. MRSA swab still awaited. Weightbearing as per Dr. Milligan. Patient will follow up with Dr. Milligan as an outpatient on coming . Appointment has already been made. Most likely patient will require home health on discharge. Stop IV fluids as patient is tolerating oral diet well. Type 2 diabetes mellitus: Insulin sliding scale Carb consistent cardiac diet. Continue to monitor. Hypertension: Goal blood pressure less than 140/90 mmHg. Continue lisinopril at home dose. Continue to monitor BMP and blood pressures. Hyponatremia: Most likely pseudohyponatremia because of elevated blood sugars. Sodium level still on the lower side. 128 today. Patient is asymptomatic. Check urinalysis, urine lites. We will continue to monitor. Stop IV fluids. Start patient on oral sodium tablets. Meredith for pain Continue other chronic medications. Will change medications as per the course of treatment. Full code. Carb consistent cardiac diet. Patient is allergic to heparin. Continue with aspirin but at 325 mg daily. Attestations Medical Necessity Statement*: Post debridement for multiple abscesses, hyponatremia Coding Level of Care Code Acute Search Coordinator for [facility] Diagnoses Diabetic foot infection E11.628; L08.9 Cellulitis L03.90 Diabetes E11.9 Hypertension I10 Hyponatremia E87.1
[2020-02-02] MEDS: gabapentin 400 mg Capsule 800 MG PO ×2 (15:23→20:17)
[2020-02-02] MEDS: piperacillin-tazobactam 3.375 GM in sodium chloride 0.9% (plus) 50 ML IV (15:23)
[2020-02-02 16:57] LABS: Glucose Point of Care 218 mg/dL (70-110)
[2020-02-02 17:02] LABS: Potassium, Radom Urine 28 mmol/L; Urine Random Chloride 129 mmol/L; Urine Random Sodium 121 mmol/L
[2020-02-02 17:23] LABS: Glucose Urine UA 4+ (Normal); Protein Urine Neg (Negative); Urine Appearance Clear (CLEAR); Urine Color Yellow (Yellow); pH Urine 6 (5-7)
[2020-02-02 17:26] LABS: Blood Urine Neg (Negative); Ketones Urine Negative (Negative)
[2020-02-02 17:27] LABS: Nitrate Urine Negative (Negative)
[2020-02-02 17:30] LABS: Bilirubin Urine Neg (Negative); Leukocyte Esterase Urine Negative (Negative); Urobilinogen Urine Norm (Negative)
[2020-02-02] MEDS: sodium chloride 1 gm Tablet PO (17:36)
[2020-02-02 17:55] LABS: Add Urine Culture? No; Bacteria Urine TRACE /hpf; Squamous Epithelial Cell Urine 0-4 /hpf (0-5)
[2020-02-02 20:47] LABS: Glucose Point of Care 306 mg/dL (70-110)
[2020-02-03] VITALS: BP 162/74; PULSE 83; RESP 18; TEMP 37; O2SAT 96
[2020-02-03] MEDS: piperacillin-tazobactam 3.375 GM in sodium chloride 0.9% (plus) 50 ML IV ×2 (01:16→09:39)
[2020-02-03 04:00] VITALS: BP 167/61; PULSE 79; RESP 18; TEMP 37.1; O2SAT 95
[2020-02-03 04:20] LABS: Basophils % 0.5 %; Eosinophils # 0.2 10^3/uL (0.0-0.8); Eosinophils % 2.3 %; Hematocrit 38.6 % (42.0-52.0); Hemoglobin 12.2 g/dL (11.7-16.6); Lymphocytes # 1.3 10^3/uL (0.8-4.8); Lymphocytes % 16.3 %; Mean Corpuscular HGB Conc 31.6 g/dL (30.0-36.0); Mean Corpuscular Hemoglobin 25.8 pg (28.0-34.0); Mean Corpuscular Volume 81.8 fL (80-94); Mean Platelet Volume 10.4 fL (7.4-10.4); Monocytes # 0.5 10^3/uL (0.2-0.9); Monocytes % 6.9 %; Neutrophils # 5.65 10^3/uL (1.8-7.7); Neutrophils % 73.7 %; Nucleated Red Blood Cells % 0 %; Platelet Count 245 10^3/cmm (130-400); Red Blood Count 4.72 10^6/uL (4.1-5.3); Red Cell Distribution Width 12.7 % (12.1-15.1); White Blood Count 7.7 10^3/uL (4.0-10.0)
[2020-02-03 04:41] LABS: Alanine Aminotransferase 40 U/L (0-41); Albumin Level 2.9 g/dL (3.5-5.2); Alkaline Phosphatase 92 IU/L (40-130); Anion Gap 15.3 (5-19); Aspartate Amino Transferase 31 U/L (0-40); Blood Urea Nitrogen 11 mg/dL (6-20); Calcium 9.1 mg/dL (8.5-10.5); Carbon Dioxide 23 mmol/L (22-29); Chloride 98 mmol/L (98-107); Creatinine Clr Calc Pharmacy 151.4487; Globulin 3.5 g/dL (1.3-4.6); Glomerular Filtration Rate 116.7 mL/min (90-130); Glucose 282 mg/dL (65-115); Osmolality Calculated 284 mOsm/kg (285-295); Potassium 4.3 mmol/L (3.5-5.1); Sodium 132 mmol/L (136-145); Total Bilirubin 0.2 mg/dL (0.15-1.2); Total Protein 6.4 g/dL (6.6-8.7)
[2020-02-03 06:49] LABS: Glucose Point of Care 303 mg/dL (70-110)
--- NOTE | 2020-02-03 07:20 | PM.PN ---
Subjective Subjective: Interval history: Patient feels a whole lot better. No acute events overnight. Vitals/I&O/Wt Last Vital Signs Temp 98.7 F 02/03/20 04:00 Pulse 79 02/03/20 04:00 Resp 18 02/03/20 04:00 BP 167/61 02/03/20 04:00 Pulse Ox 95 02/03/20 04:00 02/02/20 02/03/20 02/03/20 22:59 06:59 14:59 Intake Total 290 / 2003.393 250 / 2253.393 Output Total 600 / 2050 500 / 2550 Balance -310 / -46.607 -250 / -296.607 Weight last 48 hrs Weight 229 lb 8 oz Weight 229 lb Weight 229 lb Physical Exam Narrative: EXAM NARRATIVE: Patient is conscious alert oriented X3 BMI 29.4 Cellulitis is almost gone Left foot wound is clean for the most part yet there were some residual necrotic tissues that I debrided bedside. After removing the Surgicel and the packing there was no purulent discharge. Minor oozing from the bedside. Packing was done by me bedside in the form of wet-to-dry mini Kerlix followed by ABD Kerlix and Timothy wrap. Data : 02/03/20 04:05 02/03/20 04:05 Micro: Microbiology 02/02/20 08:19 Gram Stain - Final Other Source 02/02/20 08:20 Gram Stain - Final Foot - Left 02/01/20 13:20 Blood Culture - Preliminary Blood NEGATIVE TO DATE 02/01/20 13:20 Blood Culture - Preliminary Blood NEGATIVE TO DATE 02/01/20 12:25 Wound Culture - Preliminary Leg - Drainage Staphylococcus aureus Gram Negative Rods 02/02/20 07:00 MRSA Culture - Final Nose A&P Assessment and plan (1) Diabetic foot infection: Patient is a status post I&D of left diabetic foot abscess 02/02/2020 1-Nutrition optimization 2-wound care in the form of Packing in the form of wet-to-dry using Dakin's solution twice daily using mini Kerlix followed by ABD Kerlix and Timothy wrap. 3-management of medical comorbidities per hospitalist and primary care provider services 4-continue [place] shoes with nonweightbearing left forefoot 5-assurance and education 6-due to the patient's wound complexity he will need to follow-up at the wound care center this coming Tuesday. 7-Home health 8-diabetes management and education All questions have been answered and all concerns have been addressed to patient's satisfaction. I did discuss with the patient that he is at high risk of complications with potential amputee if diabetes was not under better control and continue to have daily local wound care. Patient verbalized his understanding and nurse's education has been given. Emphasis to follow-up with Dr. Lara as an outpatient and continue compliance with diabetes management. Assurance and education All questions have been answered and all concerns have been addressed to patient's satisfaction. Status: Acute Attestations Medical Necessity Statement*: Patient can follow-up at wound care center after being discharged from medical side Time Spent in Patient Care: (>than 50% of time spent in counselling and/or direct pt care on unit). Coding Level of Care Code Acute Able Bodied Tankerman for [facility] Diagnoses Diabetic foot infection E11.628; L08.9
[2020-02-03 07:24] VITALS: BP 160/88; PULSE 74; RESP 18; TEMP 37.1; O2SAT 93
--- NOTE | 2020-02-03 08:08 | PC.NURSE ---
Dr Milligan changed dressing to left foot at bedside, incision packed with mini kerlix moistened with NS, incision then covered with ABD and Kerlix and then covered with Timothy wrap. Per Dr Milligan patient is ok to discharge home, pending hospitalist, and be seen by HH and followup appt in 1 week.
[2020-02-03] MEDS: sodium chloride 1 gm Tablet PO (09:40)
[2020-02-03] MEDS: aspirin 325 mg EC Tablet PO (09:40)
[2020-02-03] MEDS: lisinopril 20 mg Tablet PO (09:41)
[2020-02-03] MEDS: atorvastatin 40 mg Tablet 80 MG PO (09:41)
[2020-02-03] MEDS: gabapentin 400 mg Capsule 800 MG PO (09:41)
[2020-02-03 10:57] LABS: Glucose Point of Care 305 mg/dL (70-110)
--- NOTE | 2020-02-03 11:33 | PM.DCS ---
Discharge Providers Date of Admission: 02/01/20 12:53 Date of Discharge: February 03, 2020 Attending Provider at Admission: Justin Quiroga MD Attending Provider at Discharge: Justin Quiroga MD Consults: Surgery: Dr. Richardson Primary Care Provider: Adalberto Mendoza MD Diagnoses at Discharge Discharge Diagnosis (1) Diabetic foot infection: Status: Acute Reason for Visit Reason for Visit: FOOT INFECTION, SENT BY DR MEDNOZA Hospital Course Discharge Summary: Bashir is a 54-year-old white male uncontrolled diabetic,HTN, who was recently in the hospital for foreign body cellulitis of the left foot when he was taken to the OR and foreign body was removed. Post that he was discharged on oral antibiotics as his white count is trending down. At that point blood cultures remain negative. Patient has been taking Bactrim at home. He states 3 days ago her foot started getting warm and painful again. 2 days ago January 29 he started noticing yellow-colored fluid which was foul-smelling seeping through the wound. For which he went to his primary care office today and was sent to the ER for further evaluation and treatment. Patient denies of having any fever, nausea, vomiting, headache, dizziness, increased leg pain, weakness in the leg, recurrent trauma. In the ER blood work showed a white count of 10.2, hemoglobin of 14 with a left shift of 80% neutrophilia, sodium of 129, chloride of 95, glucose of 308, normal LFTs. He has been to the hospital and started on broad-spectrum antibiotics. He was taken to the OR by Dr. Milligan for further debridement of the abscess. CT foot was done which was negative for osteomyelitis. Wound cultures to now have grown staph aureus and gram-negative rods. He was MRSA negative. Patient had further debridement Dr. Milligan on February 02. He is been discharged hemodynamically stable condition on oral Augmentin and Levaquin for next 2 weeks with advised to follow-up with Dr. Milligan on Tuesday at set appointment. Wound cultures will be followed up by Dr. Milligan as well. It was also counseled and discussed in detail with the patient regarding strict blood glucose management. He stated his blood glucose levels at home usually range from 2 42-80 including the fasting numbers as well. His insulin sliding scale has been updated. He has been asked to take higher dose of Toujeo than his baseline. He states he takes 12 units of Toujeo every day. He is been asked to take 15 units for now. He is also advised to follow-up with his primary care provider within next 7 to 10 days for further management of his antidiabetic medications. Patient was seen by physical therapy and he works well with physical therapy as well. Home health has been arranged for him. He supposed to be nonweightbearing on the foot. He is been discharged hemodynamically stable condition. Physical Exam Narrative: EXAM NARRATIVE: General: No acute distress, AO x3 HEENT: PERRLA, pupils bilaterally equal and reactive Chest: Normal vesicular breath sounds, no added sounds, equal good air entry bilaterally CVS: S1-S2 regular, no murmurs, no tachycardia, no gallops, no rubs Abdomen: Soft, nontender, no organomegaly, bowel sounds present Neuro: No focal deficits, no facial deformity, AO x3, power 5/5 in all limbs Left foot surgically bandaged by Dr. Milligan, no soakage in all toes, capillary refill normal in all toes. Discharge Data Data Completed and Pending: Completed Studies During Hospitalization Category Date Time Status CT foot LT w con [id number] Urgent Cat Scan 02/01/20 12:01 Completed Pending at discharge Category Date Time Status Abscess Culture a nd Gram Stain Rout ine Lab 02/02/20 08:19 Results Anaerobic Culture Routine Lab 02/02/20 08:20 Results Blood Culture Sta t Lab 02/01/20 13:20 Results Tissue Culture an d Gram Stain Routi ne Lab 02/02/20 08:20 Results Wound Culture Sta t Lab 02/01/20 12:25 Results Pathology: Surgic al [PTH] Routine Pth 02/02/20 08:35 Ordered Labs from last 24 hours 02/03/20 02/03/20 02/03/20 10:51 06:39 04:05 WBC RBC Hgb Hct MCV MCH MCHC RDW Plt Count MPV Neut % (Auto) Lymph % (Auto) [place] % (Auto) Eos % (Auto) Baso % (Auto) Neut # (Auto) Lymph # (Auto) [place] # (Auto) Eos # (Auto) Baso # (Auto) Nucleated RBC % (a uto) Nucleated RBCs # Sodium 132 L Potassium 4.3 Chloride 98 Carbon Dioxide 23 Anion Gap 15.3 BUN 11 Creatinine 0.7 GFR Calculation 116.7 Glucose 282 H POC Glucose 305 303 Calculated Osmolal ity 284 L Calcium 9.1 Total Bilirubin 0.2 AST 31 ALT 40 Alkaline Phosphata se 92 Total Protein 6.4 L Albumin 2.9 L Globulin 3.5 Urine Color Urine Appearance Urine pH Ur Specific Gravit y Urine Protein Urine Glucose (UA) Urine Ketones Urine Blood Urine Nitrate Urine Bilirubin Urine Urobilinogen Ur Leukocyte Marleni ase Urine RBC Urine WBC Ur Squamous Epith Cells Ur Transition Epit h Cell Ur Renal Epithelia l Cell Amorphous Sediment Urine Bacteria Ur Random Sodium Ur Random Potassiu m Ur Random Chloride Vancomycin Trough 02/03/20 02/02/20 02/02/20 04:05 20:38 19:45 WBC 7.7 RBC 4.72 Hgb 12.2 Hct 38.6 L MCV 81.8 MCH 25.8 L MCHC 31.6 RDW 12.7 Plt Count 245 MPV 10.4 Neut % (Auto) 73.7 Lymph % (Auto) 16.3 [place] % (Auto) 6.9 Eos % (Auto) 2.3 Baso % (Auto) 0.5 Neut # (Auto) 5.65 Lymph # (Auto) 1.3 [place] # (Auto) 0.5 Eos # (Auto) 0.2 Baso # (Auto) 0.0 Nucleated RBC % (a uto) 0 Nucleated RBCs # 0.0 Sodium Potassium Chloride Carbon Dioxide Anion Gap BUN Creatinine GFR Calculation Glucose POC Glucose 306 Calculated Osmolal ity Calcium Total Bilirubin AST ALT Alkaline Phosphata se Total Protein Albumin Globulin Urine Color Urine Appearance Urine pH Ur Specific Gravit y Urine Protein Urine Glucose (UA) Urine Ketones Urine Blood Urine Nitrate Urine Bilirubin Urine Urobilinogen Ur Leukocyte Marleni ase Urine RBC Urine WBC Ur Squamous Epith Cells Ur Transition Epit h Cell Ur Renal Epithelia l Cell Amorphous Sediment Urine Bacteria Ur Random Sodium Ur Random Potassiu m Ur Random Chloride Vancomycin Trough 13.0 02/02/20 02/02/20 02/02/20 16:52 12:25 12:25 WBC RBC Hgb Hct MCV MCH MCHC RDW Plt Count MPV Neut % (Auto) Lymph % (Auto) [place] % (Auto) Eos % (Auto) Baso % (Auto) Neut # (Auto) Lymph # (Auto) [place] # (Auto) Eos # (Auto) Baso # (Auto) Nucleated RBC % (a uto) Nucleated RBCs # Sodium Potassium Chloride Carbon Dioxide Anion Gap BUN Creatinine GFR Calculation Glucose POC Glucose 218 Calculated Osmolal ity Calcium Total Bilirubin AST ALT Alkaline Phosphata se Total Protein Albumin Globulin Urine Color Yellow Urine Appearance Clear Urine pH 6 Ur Specific Gravit y 1.020 Urine Protein Neg Urine Glucose (UA) 4+ H Urine Ketones Negative Urine Blood Neg Urine Nitrate Negative Urine Bilirubin Neg Urine Urobilinogen Norm Ur Leukocyte Marleni ase Negative Urine RBC None Urine WBC None Ur Squamous Epith Cells 0-4 H Ur Transition Epit h Cell None Ur Renal Epithelia l Cell None Amorphous Sediment Not Reportable Urine Bacteria Trace Ur Random Sodium 121 Ur Random Potassiu m 28 Ur Random Chloride 129 Vancomycin Trough Vitals: Last Vital Signs Temp 98.8 F 02/03/20 07:24 Pulse 74 02/03/20 07:24 Resp 18 02/03/20 07:24 BP 160/88 02/03/20 07:24 Pulse Ox 93 02/03/20 07:24 Discharge Plan Discharge Patient Disposition: Home Health Service Condition: Stable Prescriptions: New amoxicillin-pot clavulanate 1,000-62.5 mg tablet extended release 12 hr 1 tab PO Q12H 14 Days Qty: 28 RF: 0 levofloxacin 500 mg tablet 500 mg PO DAILY 14 Days Qty: 14 RF: 0 Continued metformin 500 mg tablet 500 mg PO BID RF: 0 gabapentin 800 mg tablet 800 mg PO TID RF: 0 lisinopril 20 mg tablet 20 mg PO DAILY RF: 0 aspirin 81 mg Tablet,Chewable 81 mg PO DAILY RF: 0 rosuvastatin 40 mg tablet 40 mg PO DAILY RF: 0 sildenafil (pulm.hypertension) 20 mg tablet 20 mg PO PRN PRN (Reason: erectile disfunctions) RF: 0 Toujeo SoloStar U-300 Insulin 300 unit/mL (1.5 mL) insulin pen 18 unit SUBCUT DAILY RF: 0 Humulin 70/30 U-100 Insulin 100 unit/mL (70-30) suspension 1 sliding scale dose SUBCUT TID Qty: 0 RF: 0 Discontinued sulfamethoxazole-trimethoprim [Bactrim DS] 800-160 mg tablet 1 tab PO BID 7 Days Qty: 14 RF: 0 Discharge Orders: Discharge Order (Routine); Ordered 02/03/20 Ordered By: Eusebio Milligan Referrals: Eusebio Milligan MD [Physician] - 4-7 days (Follow-up at the wound care center due to patient's wound complexity with Dr. Milligan this coming Tuesday.) Adalberto Mendoza MD [Primary Care Provider] - 7-10 days Discharge Diet: Regular and Diabetic Discharge Activity: Limit activity as instructed Patient Instructions: Type 2 Diabetes, Acute Wound Care (GEN), Diabetic Foot Ulcers (GEN) Activity Restrictions/Additional Instructions: Nonweightbearing left forefoot. You will be on 2 antibiotics Augmentin and Levaquin for 2 weeks. Please follow-up with Dr. Milligan in his office on set appointment. Insulin sliding scale has been updated. Please follow-up with Dr. Mendoza in next 7 to 10 days for further diabetes management. Discharge Attestations Time Spent in Discharge Care*: greater than 30 min Specific Discharge Activities: Specific discharge activities: educating patient, educating and/or supporting family/caregiver, discussing with pcp/other providers, discussing with case therapist/social workers/dc planners, documenting/other paperwork and evaluating patient/reviewing data Status at Discharge: Cognitive status at discharge: cognitively intact, Behavioral status at discharge: cooperative, Functional status at discharge: independent ambulation Overall status at discharge: patient is progressing back to baseline Quality Metrics Clinical Quality Measures During this hospital stay, did patient experience: None Coding Level of Care Code Acute Graphic Design Manager for [employer] Diagnoses Diabetic foot infection E11.628; L08.9
[2020-02-03 11:40] VITALS: BP 162/94; PULSE 75; RESP 18; TEMP 36.9; O2SAT 95
--- NOTE | 2020-02-03 12:58 | PC.NURSE ---
patient given discharge instruction and verbalized understanding of instructions. IV removed. IV catheter intact. patient assisted with getting dressed and taken to private vehicle by comic book writer via wheelchair.
[2020-02-03 13:00] VITALS: BP 162/94; PULSE 75; RESP 18; TEMP 36.9; O2SAT 95
== END 2020-02-03 13:00 | disposition home health service (06) | DRG 988 ==
LOC: ER 13:07 → MEDSURG 13:27
PROVIDERS: Emergency Medicine; Surgery; Admitting Provider Student in an Organized Health Care Education/Training Program; PCP Family Medicine; Visit Provider Student in an Organized Health Care Education/Training Program
PROC: 0J9R0ZZ Drainage of Left Foot Subcutaneous Tissue and Fascia, Open Approach (ICD-10-PCS; principal; 2020-02-02 08:00)
DX: E11.628 Type 2 diabetes mellitus with other skin complications (principal); L02.612 Cutaneous abscess of left foot; L03.116 Cellulitis of left lower limb; E87.1 Hypo-osmolality and hyponatremia; E11.65 Type 2 diabetes mellitus with hyperglycemia; I10 Essential (primary) hypertension; Z86.73 Personal history of transient ischemic attack (TIA), and cerebral infarction without residual deficits; A49.01 Methicillin susceptible Staphylococcus aureus infection, unspecified site; Z79.82 Long term (current) use of aspirin; Z79.4 Long term (current) use of insulin
CPT/HCPCS: 12345; 36415; 36416; 73701; 80048; 80053; 80202; 81001; 82436; 82962; 83540; 83550; 83735; 84100; 84133; 84145; 84300; 85025; 85610; 85651; 86140; 87040; 87070; 87075; 87077; 87176; 87186; 87205; 87641; 88304; 94664; 96372; 99283; G0378; J0131; J1815; J2543; J3010; J3370; J7030; J7050; Q9967

== ENCOUNTER 2020-02-08 08:02 | Outpatient (CLI) | payer MEDICARE, SELFPAY | END 2020-02-08 08:03 | disposition home or self-care (01) | LOC: WOUND 08:03 | PROVIDERS: PCP Family Medicine; Visit Provider Surgery | DX: E11.621 Type 2 diabetes mellitus with foot ulcer (principal); L97.423 Non-pressure chronic ulcer of left heel and midfoot with necrosis of muscle | CPT/HCPCS: 11043; 11046; G0463; L4631 ==

== ENCOUNTER 2020-02-15 09:07 | Outpatient (CLI) | payer MEDICARE, SELFPAY | END 2020-02-15 09:08 | disposition home or self-care (01) | LOC: WOUND 09:08 | PROVIDERS: PCP Family Medicine; Visit Provider Surgery | DX: E11.621 Type 2 diabetes mellitus with foot ulcer (principal); L97.423 Non-pressure chronic ulcer of left heel and midfoot with necrosis of muscle | CPT/HCPCS: 11043; 11046 ==

== ENCOUNTER 2020-02-20 15:02 | Outpatient (CLI) | payer MEDICARE, SELFPAY ==
[2020-02-20 15:47] LABS: Estmated Average Glucose 229; Hemoglobin A1C 9.6 % (4.0-6.0)
[2020-02-20 15:58] LABS: Alanine Aminotransferase 21 U/L (0-41); Alkaline Phosphatase 86 IU/L (40-130); Anion Gap 13.6 (5-19); Aspartate Amino Transferase 17 U/L (0-40); Blood Urea Nitrogen 18 mg/dL (6-20); Calcium 9.5 mg/dL (8.5-10.5); Carbon Dioxide 28 mmol/L (22-29); Chloride 100 mmol/L (98-107); Glucose 302 mg/dL (65-115); Osmolality Calculated 297 mOsm/kg (285-295); Potassium 4.6 mmol/L (3.5-5.1); Prealbumin 22.9 mg/dL (20-40); Sodium 137 mmol/L (136-145); Total Bilirubin 0.2 mg/dL (0.15-1.2)
== END 2020-02-20 15:03 | disposition home or self-care (01) ==
LOC: LAB 15:08
PROVIDERS: PCP Family Medicine; Visit Provider Surgery
DX: L98.499 Non-pressure chronic ulcer of skin of other sites with unspecified severity (principal)
CPT/HCPCS: 36415; 80053; 83036; 84134

== ENCOUNTER 2020-02-22 09:25 | Outpatient (CLI) | payer MEDICARE, SELFPAY | END 2020-02-22 09:26 | disposition home or self-care (01) | LOC: WOUND 09:26 | PROVIDERS: PCP Family Medicine; Visit Provider Surgery | DX: E11.621 Type 2 diabetes mellitus with foot ulcer (principal); L97.423 Non-pressure chronic ulcer of left heel and midfoot with necrosis of muscle | CPT/HCPCS: 11042 ==

== ENCOUNTER 2020-02-29 13:58 | Outpatient (CLI) | payer MEDICARE, OTHER, SELFPAY | END 2020-02-29 13:59 | disposition home or self-care (01) | LOC: WOUND 13:59 | PROVIDERS: PCP Family Medicine; Visit Provider Surgery | DX: E11.621 Type 2 diabetes mellitus with foot ulcer (principal); L97.423 Non-pressure chronic ulcer of left heel and midfoot with necrosis of muscle | CPT/HCPCS: 11043 ==

== ENCOUNTER 2020-03-07 13:42 | Outpatient (CLI) | payer MEDICARE, SELFPAY | END 2020-03-07 13:43 | disposition home or self-care (01) | LOC: WOUND 13:43 | PROVIDERS: PCP Family Medicine; Visit Provider Nurse Practitioner Family | DX: E11.621 Type 2 diabetes mellitus with foot ulcer (principal); L97.422 Non-pressure chronic ulcer of left heel and midfoot with fat layer exposed | CPT/HCPCS: 11042 ==

== ENCOUNTER 2020-03-21 13:50 | Outpatient (CLI) | payer MEDICARE, SELFPAY | END 2020-03-21 13:51 | disposition home or self-care (01) | LOC: WOUND 13:54 | PROVIDERS: PCP Family Medicine; Visit Provider Surgery | DX: E11.621 Type 2 diabetes mellitus with foot ulcer (principal); L97.423 Non-pressure chronic ulcer of left heel and midfoot with necrosis of muscle | CPT/HCPCS: 11042 ==

== ENCOUNTER 2020-04-18 14:09 | Outpatient (CLI) | payer MEDICARE, SELFPAY | END 2020-04-18 14:10 | disposition home or self-care (01) | LOC: WOUND 14:10 | PROVIDERS: PCP Family Medicine; Visit Provider Surgery | DX: E11.621 Type 2 diabetes mellitus with foot ulcer (principal); L97.422 Non-pressure chronic ulcer of left heel and midfoot with fat layer exposed | CPT/HCPCS: 11042 ==

== ENCOUNTER 2020-05-09 13:56 | Outpatient (CLI) | payer MEDICARE, SELFPAY | END 2020-05-09 13:57 | disposition home or self-care (01) | LOC: WOUND 13:58 | PROVIDERS: PCP Family Medicine; Visit Provider Surgery | DX: E11.621 Type 2 diabetes mellitus with foot ulcer (principal); L97.422 Non-pressure chronic ulcer of left heel and midfoot with fat layer exposed | CPT/HCPCS: 11042 ==

== ENCOUNTER 2020-05-16 14:07 | Outpatient (CLI) | payer MEDICARE, SELFPAY | END 2020-05-16 14:08 | disposition home or self-care (01) | LOC: WOUND 14:08 | PROVIDERS: PCP Family Medicine; Visit Provider Surgery | DX: Z09 Encounter for follow-up examination after completed treatment for conditions other than malignant neoplasm (principal) | CPT/HCPCS: 99212 ==

== ENCOUNTER 2020-07-21 08:07 | Outpatient (CLI) | payer MEDICARE, OTHER, SELFPAY | END 2020-07-21 08:08 | disposition home or self-care (01) | LOC: WOUND 08:08 | PROVIDERS: PCP Family Medicine; Visit Provider Nurse Practitioner Family | DX: E11.621 Type 2 diabetes mellitus with foot ulcer (principal); L97.522 Non-pressure chronic ulcer of other part of left foot with fat layer exposed | CPT/HCPCS: 97597; 99212 ==

== ENCOUNTER 2020-07-28 09:31 | Outpatient (CLI) | payer MEDICARE, OTHER, SELFPAY | END 2020-07-28 09:32 | disposition home or self-care (01) | LOC: WOUND 09:33 | PROVIDERS: PCP Family Medicine; Visit Provider Nurse Practitioner Family | DX: E11.621 Type 2 diabetes mellitus with foot ulcer (principal); L97.522 Non-pressure chronic ulcer of other part of left foot with fat layer exposed | CPT/HCPCS: 11042 ==

== ENCOUNTER 2020-08-04 09:24 | Outpatient (CLI) | payer MEDICARE, OTHER, SELFPAY | END 2020-08-04 09:25 | disposition home or self-care (01) | LOC: WOUND 09:28 | PROVIDERS: PCP Family Medicine; Visit Provider Nurse Practitioner Family | DX: E11.621 Type 2 diabetes mellitus with foot ulcer (principal); L97.522 Non-pressure chronic ulcer of other part of left foot with fat layer exposed | CPT/HCPCS: 11042 ==

== ENCOUNTER 2020-08-11 09:37 | Outpatient (CLI) | payer MEDICARE, OTHER, SELFPAY | END 2020-08-11 09:38 | disposition home or self-care (01) | LOC: WOUND 09:38 | PROVIDERS: PCP Family Medicine; Visit Provider Nurse Practitioner Family | DX: E11.621 Type 2 diabetes mellitus with foot ulcer (principal); L97.522 Non-pressure chronic ulcer of other part of left foot with fat layer exposed | CPT/HCPCS: 11042 ==

== ENCOUNTER 2020-08-18 09:00 | Outpatient (CLI) | payer MEDICARE, OTHER, SELFPAY | END 2020-08-18 09:01 | disposition home or self-care (01) | LOC: WOUND 09:01 | PROVIDERS: PCP Family Medicine; Visit Provider Nurse Practitioner Family | DX: E11.622 Type 2 diabetes mellitus with other skin ulcer (principal); L97.522 Non-pressure chronic ulcer of other part of left foot with fat layer exposed | CPT/HCPCS: 11042 ==

== ENCOUNTER 2020-08-28 11:35 | Outpatient (CLI) | payer MEDICARE, OTHER, SELFPAY | END 2020-08-28 11:36 | disposition home or self-care (01) | LOC: WOUND 11:36 | PROVIDERS: PCP Family Medicine; Visit Provider Nurse Practitioner Family | DX: E11.621 Type 2 diabetes mellitus with foot ulcer (principal); L97.521 Non-pressure chronic ulcer of other part of left foot limited to breakdown of skin | CPT/HCPCS: 11042 ==

== ENCOUNTER 2020-09-15 09:58 | Outpatient (CLI) | payer MEDICARE, OTHER, SELFPAY | END 2020-09-15 09:59 | disposition home or self-care (01) | LOC: WOUND 09:59 | PROVIDERS: PCP Family Medicine; Visit Provider Nurse Practitioner Family | DX: Z09 Encounter for follow-up examination after completed treatment for conditions other than malignant neoplasm (principal) | CPT/HCPCS: 99212 ==

== ENCOUNTER 2020-10-23 18:41 | Emergency (ER) | payer MEDICARE, OTHER, SELFPAY ==
[2020-10-23 18:44] VITALS: BP 168/76; PULSE 78; RESP 18; TEMP 36.7; O2SAT 97
--- NOTE | 2020-10-23 19:00 | ECG_ITS ---
[facility] Test Date: 2020-10-23 Pat Name: Lance Howard Department: Room: Gender: Male Planning Analyst: : 1965 Requested By: Jj Edge Order Number: [id number] Elsie MD: Imani Morris M.D. Measurements Intervals [place] Rate: 77 P: 75 AL: 182 QRS: -27 QRSD: 103 T: 47 QT: 364 QTc: 413 Interpretive Statements SINUS RHYTHM INDETERMINATE AXIS Compared to ECG 10/23/2017 21:00:26 Indeterminate axis now present Left-axis deviation no longer present Electronically Signed On 10-24-2020 14:15:09 CDT by Imani Morris M.D. [id number]
--- NOTE | 2020-10-23 19:00 | CTR_ITS ---
PROCEDURE INFORMATION: Exam: CT Head Without Contrast Exam date and time: 10/23/2020 7:00 PM Age: 55 years old Clinical indication: Speech disturbance and weakness, extremity; Left; Additional info: Symptoms of acute stroke TECHNIQUE: Imaging protocol: Computed tomography of the head without contrast. Radiation optimization: All CT scans at this facility use at least one of these dose optimization techniques: automated exposure control; mA and/or kV adjustment per patient size (includes targeted exams where dose is matched to clinical indication); or iterative reconstruction. Other technique: STROKE PROTOCOL was implemented. COMPARISON: MR head wo con* [id number] 01/19/2019 12:39 PM RADIATION DOSE METRICS: Total DLP (mGy-cm): 851.33 FINDINGS: Brain: Normal. No hemorrhage. Unremarkable white matter. No mass effect. Cerebral ventricles: No ventriculomegaly. Paranasal sinuses: Visualized sinuses are unremarkable. No fluid levels. Mastoid air cells: Visualized mastoid air cells are well aerated. Bones/joints: Unremarkable. No acute fracture. Soft tissues: Unremarkable. CT/CT head wo con* [id number] IMPRESSION: No acute intracranial abnormality. ASSESSMENT: ASPECTS ([place] Stroke Program Early CT Score) is 10. Radiation Dose CTDIVOL = (mGy): DLP = 851.33 (mGy-cm)
--- NOTE | 2020-10-23 19:05 | CTR_ITS ---
PROCEDURE INFORMATION: Exam: CT Angiography Head With Contrast, Arteriography Exam date and time: 10/23/2020 7:05 PM Age: 55 years old Clinical indication: Speech disturbance and weakness; Slurred speech; Additional info: Tias. Left sided weakness TECHNIQUE: Imaging protocol: Computed tomography angiography of the head with contrast. Exam focused on the arteries. 3D rendering (Not supervised by radiologist): MIP and/or 3D reconstructed images were created by the technologist. Radiation optimization: All CT scans at this facility use at least one of these dose optimization techniques: automated exposure control; mA and/or kV adjustment per patient size (includes targeted exams where dose is matched to clinical indication); or iterative reconstruction. Contrast material: OMNI 350; Contrast volume: 95 ml; Contrast route: INTRAVENOUS (IV); COMPARISON: 1. MR head wo con* [id number] 01/19/2019 12:[address] head wo con* [id number] 10/23/2020 7:25:33 PM RADIATION DOSE METRICS: Total DLP (mGy-cm): 2936.16 FINDINGS: ANTERIOR CIRCULATION: Right internal carotid artery: Mild calcified plaque at the cavernous segment. No occlusion, thrombosis, stenosis, extravasation, dissection, or aneurysm. Right middle cerebral artery: Unremarkable. No occlusion, thrombosis, stenosis, extravasation, dissection, or aneurysm. Right anterior cerebral artery: Unremarkable. No occlusion, thrombosis, stenosis, extravasation, dissection, or aneurysm. Anterior communicating artery: The anterior communicating artery is unremarkable. Left internal carotid artery: Unremarkable. No occlusion, thrombosis, stenosis, extravasation, dissection, or aneurysm. Left middle cerebral artery: Unremarkable. No occlusion, thrombosis, stenosis, extravasation, dissection, or aneurysm. Left anterior cerebral artery: Unremarkable. No occlusion, thrombosis, stenosis, extravasation, dissection, or aneurysm. POSTERIOR CIRCULATION: Right vertebral artery: Unremarkable. No occlusion, thrombosis, stenosis, extravasation, dissection, or aneurysm. Left vertebral artery: Unremarkable. No occlusion, thrombosis, stenosis, extravasation, dissection, or aneurysm. Basilar artery: Unremarkable. No occlusion, thrombosis, stenosis, extravasation, dissection, or aneurysm. Right posterior cerebral artery: Unremarkable. No occlusion, thrombosis, stenosis, dissection, or aneurysm. Left posterior cerebral artery: Unremarkable. No occlusion, thrombosis, stenosis, extravasation, dissection, or aneurysm. Right posterior communicating artery: The right posterior communicating artery is not visualized. The right posterior communicating artery may be congenitally absent, or may be too small for the resolution capabilities of this study. Left posterior communicating artery: The left posterior communicating artery is not visualized. The left posterior communicating artery may be congenitally absent, or may be too small for the resolution capabilities of this study. Veins: The dural sinuses and deep cerebral veins are patent. Brain: No definite mass, mass effect, or midline shift. Cerebral ventricles: No ventriculomegaly. Orbital cavity: Globes and lenses, extraocular muscles, and optic nerves are intact bilaterally. No acute intraorbital abnormality. Bones/joints: Unremarkable. No acute fracture. Mastoid air cells: Small amount of fluid in the right and left mastoid air cells. Soft tissues: Unremarkable. Paranasal sinuses: Paranasal sinuses are clear. IMPRESSION: 1. Mild atherosclerotic disease at the cavernous segment of the right internal carotid artery. No occlusion, thrombosis, stenosis, extravasation, dissection, or aneurysm. 2. The posterior communicating arteries are not visualized. The posterior communicating arteries may be congenitally absent, or may be too small for the resolution capabilities of this study. 3. Small amount of fluid in the right and left mastoid air cells. PROCEDURE INFORMATION: Exam: CT Angiography Neck With Contrast Exam date and time: 10/23/2020 7:05 PM Age: 55 years old Clinical indication: Speech disturbance and weakness; Slurred speech; Additional info: Tias. Left sided weakness TECHNIQUE: Imaging protocol: Computed tomography angiography of the neck with contrast. 3D rendering (Not supervised by radiologist): MIP and/or 3D reconstructed images were created by the technologist. Radiation optimization: All CT scans at this facility use at least one of these dose optimization techniques: automated exposure control; mA and/or kV adjustment per patient size (includes targeted exams where dose is matched to clinical indication); or iterative reconstruction. Contrast material: OMNI 350; Contrast volume: 95 ml; Contrast route: INTRAVENOUS (IV); COMPARISON: MR head wo con* [id number] 01/19/2019 12:39 PM RADIATION DOSE METRICS: Total DLP (mGy-cm): 2936.16 FINDINGS: Right common carotid artery: Mild calcified and noncalcified plaque at the carotid bulb. No occlusion, thrombosis, stenosis, extravasation, dissection, or aneurysm. Right internal carotid artery: Mild calcified and moderate noncalcified plaque at the origin. 30% stenosis using NASCET criteria. No occlusion, thrombosis, extravasation, dissection, or aneurysm. Right external carotid artery: Unremarkable. No occlusion, thrombosis, stenosis, extravasation, dissection, or aneurysm. Left common carotid artery: Unremarkable. No occlusion, thrombosis, stenosis, extravasation, dissection, or aneurysm. Left internal carotid artery: Unremarkable. No occlusion, thrombosis, stenosis, extravasation, dissection, or aneurysm. Left external carotid artery: Minimal calcified plaque at the origin. No occlusion, thrombosis, stenosis, extravasation, dissection, or aneurysm. Right vertebral artery: Unremarkable. No occlusion, thrombosis, stenosis, extravasation, dissection, or aneurysm. Left vertebral artery: Unremarkable. No occlusion, thrombosis, stenosis, extravasation, dissection, or aneurysm. Brachiocephalic artery: Mild calcified plaque at the origin. No occlusion, thrombosis, stenosis, extravasation, dissection, or aneurysm. Subclavian arteries: Unremarkable. No occlusion, thrombosis, stenosis, extravasation, dissection, or aneurysm. Aorta: Mild calcified plaque in the visualized aorta. No occlusion, thrombosis, stenosis, extravasation, dissection, or aneurysm. Lymph nodes: No lymphadenopathy. Partially calcified mediastinal and right hilar lymph nodes. Soft tissues: No acute abnormality of the cervical soft tissues. Bones/joints: Multilevel degenerative changes of varying severity in the visualized spine. Lungs: Visualized lungs are clear. CT/CT angio headneck* [id number] IMPRESSION: 1. Mild atherosclerotic disease. 30% stenosis at the origin of the right internal carotid artery. No occlusion, thrombosis, extravasation, dissection, or aneurysm. 2. Incidental/nonacute findings are listed in the report. REFERENCES: NASCET CRITERIA. The degree of internal carotid artery stenosis is based on NASCET criteria. Normal is no stenosis. Mild is less than 50% stenosis. Moderate is 50-69% stenosis. Severe is 70% to 99% stenosis. Total occlusion is no detectable patent lumen. Radiation Dose CTDIVOL = (mGy): DLP = 2936.16~2936.16 (mGy-cm)
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
[2020-10-23] MEDS: iohexol 350 mg/mL 100 mL Btl IV (19:32)
[2020-10-23 19:52] LABS: Basophils % 0.5 %; Eosinophils # 0.1 10^3/uL (0.0-0.8); Eosinophils % 1.8 %; Hematocrit 42.7 % (42.0-52.0); Lymphocytes # 1.1 10^3/uL (0.8-4.8); Lymphocytes % 26.4 %; Mean Corpuscular HGB Conc 32.8 g/dL (30.0-36.0); Mean Corpuscular Hemoglobin 26.1 pg (28.0-34.0); Mean Corpuscular Volume 79.7 fL (80-94); Mean Platelet Volume 12.2 fL (7.4-10.4); Monocytes # 0.3 10^3/uL (0.2-0.9); Monocytes % 7.6 %; Neutrophils # 2.52 10^3/uL (1.8-7.7); Neutrophils % 63.4 %; Nucleated Red Blood Cells % 0 %; Platelet Count 170 10^3/cmm (130-400); Red Blood Count 5.36 10^6/uL (4.1-5.3); Red Cell Distribution Width 13.2 % (12.1-15.1)
[2020-10-23 20:06] LABS: INR 0.94 (0.8-1.2)
[2020-10-23 20:10] LABS: Alanine Aminotransferase 26 U/L (0-41); Albumin Level 4.2 g/dL (3.5-5.2); Alkaline Phosphatase 102 IU/L (40-130); Anion Gap 12.1 (5-19); Aspartate Amino Transferase 21 U/L (0-40); Blood Urea Nitrogen 15 mg/dL (6-20); Calcium 8.8 mg/dL (8.5-10.5); Carbon Dioxide 26 mmol/L (22-29); Chloride 101 mmol/L (98-107); Globulin 2.3 g/dL (1.3-4.6); Glomerular Filtration Rate 99.6 mL/min (90-130); Glucose 469 mg/dL (65-115); Osmolality Calculated 299 mOsm/kg (285-295); Potassium 5.1 mmol/L (3.5-5.1); Sodium 134 mmol/L (136-145); Total Bilirubin 0.3 mg/dL (0.15-1.2); Total Protein 6.5 g/dL (6.6-8.7)
[2020-10-23 20:38] LABS: Add Urine Microscopic? NO; Charge for UA Resulting for Rev
[2020-10-23 20:39] LABS: Bilirubin Urine Neg (Negative); Blood Urine Neg (Negative); Glucose Urine UA Norm (Normal); Ketones Urine Negative (Negative); Leukocyte Esterase Urine Negative (Negative); Nitrate Urine Negative (Negative); Protein Urine Neg (Negative); Urine Appearance Clear (CLEAR); Urine Color Straw (Yellow); Urobilinogen Urine Norm (Negative); pH Urine 5 (5-7)
[2020-10-23 21:01] LABS: Glucose Point of Care 385 mg/dL (70-110)
--- NOTE | 2020-10-24 11:36 | DCPLANNER ---
records management manager had message to schedule a follow up appointment for patient with neurology for possible TIA. records management manager emailed patients information the neurology clinic. Patients information will be printed and reviewed. Clinic will call patient with appointment information.
--- NOTE | 2020-11-04 08:05 | DCPLANNER ---
Addendum entered by Arlene Latif 11/05/20 08:12: The neurology clinic emailed trimming caser back stating that they have not scheduled an appointment at this time, due to not being able to reach patient to schedule the appointment. Original Note: manager dairy emailed the neurology clinic asking if an appointment had been scheduled for patient.
--- NOTE | 2020-11-07 14:20 | DCPLANNER ---
manager java called the office of Dr. Shah to confirm that a follow up appointment was scheduled for patient. manager java was told that clinic has tried to reach patient and has left messages for patient. Clinic is waiting for patient to return immigration case manager phone call.
== END 2020-10-23 22:00 | disposition left against medical advice (07) ==
PROVIDERS: Emergency Provider Family Medicine; PCP Family Medicine
DX: G45.9 Transient cerebral ischemic attack, unspecified (principal); Z79.82 Long term (current) use of aspirin; Z79.4 Long term (current) use of insulin; E11.9 Type 2 diabetes mellitus without complications; I10 Essential (primary) hypertension; Z86.711 Personal history of pulmonary embolism; Z86.73 Personal history of transient ischemic attack (TIA), and cerebral infarction without residual deficits; Z53.21 Procedure and treatment not carried out due to patient leaving prior to being seen by health care provider
CPT/HCPCS: 36416; 70450; 70496; 70498; 80053; 81003; 82962; 85025; 85610; 85730; 93005; 96372; 99284; J1815; Q9967

== ENCOUNTER → 2021-01-19 13:54 | Outpatient (BNVA) | payer MEDICARE, OTHER, SELFPAY | PROVIDERS: PCP Family Medicine; Visit Provider Registered Nurse Neonatal Intensive Care | DX: M77.32 Calcaneal spur, left foot (principal) | CPT/HCPCS: 73630 ==

== ENCOUNTER → 2021-03-24 16:24 | Outpatient (BNVA) | payer MEDICARE, OTHER, SELFPAY | PROVIDERS: PCP Family Medicine; Visit Provider Family Medicine | DX: E87.1 Hypo-osmolality and hyponatremia; I10 Essential (primary) hypertension; Z76.89 Persons encountering health services in other specified circumstances; E11.8 Type 2 diabetes mellitus with unspecified complications; Z79.4 Long term (current) use of insulin | CPT/HCPCS: 80048; 83036 ==

== ENCOUNTER → 2021-12-24 09:53 | Outpatient (BNVA) | payer MEDICARE, OTHER, SELFPAY | PROVIDERS: PCP Family Medicine; Visit Provider Family Medicine | DX: E11.42 Type 2 diabetes mellitus with diabetic polyneuropathy (principal); E78.2 Mixed hyperlipidemia; I10 Essential (primary) hypertension; Z79.4 Long term (current) use of insulin; N40.0 Benign prostatic hyperplasia without lower urinary tract symptoms; G45.9 Transient cerebral ischemic attack, unspecified; Z12.11 Encounter for screening for malignant neoplasm of colon | CPT/HCPCS: 80053; 80061; 83036; 84153; 84443; 85025 ==

== ENCOUNTER → 2022-03-24 15:50 | Outpatient (BNVA) | payer OTHER, MEDICARE, SELFPAY | PROVIDERS: PCP Family Medicine; Visit Provider Family Medicine | DX: I10 Essential (primary) hypertension (principal); E11.42 Type 2 diabetes mellitus with diabetic polyneuropathy; M54.50 Low back pain, unspecified; Z79.4 Long term (current) use of insulin | CPT/HCPCS: 83036 ==

== ENCOUNTER → 2022-12-14 08:58 | Outpatient (BNVA) | payer OTHER, MEDICARE, SELFPAY | PROVIDERS: PCP Family Medicine; Visit Provider Family Medicine | DX: E11.42 Type 2 diabetes mellitus with diabetic polyneuropathy (principal); E11.8 Type 2 diabetes mellitus with unspecified complications; E78.2 Mixed hyperlipidemia; I10 Essential (primary) hypertension; Z79.4 Long term (current) use of insulin; E83.52 Hypercalcemia; E83.42 Hypomagnesemia; Z12.5 Encounter for screening for malignant neoplasm of prostate | CPT/HCPCS: 80053; 80061; 82306; 83036; 83735; 84443; 85025; G0103 ==

== ENCOUNTER → 2023-03-27 12:52 | Outpatient (BNVA) | payer OTHER, MEDICARE, SELFPAY | PROVIDERS: PCP Family Medicine; Visit Provider Registered Nurse Neonatal Intensive Care | DX: S89.92XA Unspecified injury of left lower leg, initial encounter (principal); W19.XXXA Unspecified fall, initial encounter | CPT/HCPCS: 73562 ==

== ENCOUNTER → 2023-04-18 09:01 | Outpatient (BNVA) | payer OTHER, MEDICARE, SELFPAY | PROVIDERS: PCP Family Medicine; Visit Provider Family Medicine | DX: I10 Essential (primary) hypertension (principal); E11.9 Type 2 diabetes mellitus without complications; Z79.4 Long term (current) use of insulin; E11.8 Type 2 diabetes mellitus with unspecified complications; M25.562 Pain in left knee | CPT/HCPCS: 80048; 83036 ==

== ENCOUNTER → 2023-11-23 11:41 | Outpatient (BNVA) | payer OTHER, MEDICARE, SELFPAY | PROVIDERS: PCP Family Medicine; Visit Provider Family Medicine | DX: R55 Syncope and collapse (principal); G45.9 Transient cerebral ischemic attack, unspecified; E11.9 Type 2 diabetes mellitus without complications; Z79.4 Long term (current) use of insulin; I10 Essential (primary) hypertension; E78.2 Mixed hyperlipidemia; R79.89 Other specified abnormal findings of blood chemistry; E83.42 Hypomagnesemia; E55.9 Vitamin D deficiency, unspecified; Z12.5 Encounter for screening for malignant neoplasm of prostate; E11.21 Type 2 diabetes mellitus with diabetic nephropathy; E11.42 Type 2 diabetes mellitus with diabetic polyneuropathy; E11.8 Type 2 diabetes mellitus with unspecified complications | CPT/HCPCS: 80053; 80061; 82306; 82607; 83036; 83735; 84439; 84443; 85025; G0103 ==

== ENCOUNTER 2023-12-01 10:12 | Outpatient (CLI) | payer MEDICARE, OTHER, SELFPAY ==
--- NOTE | 2023-12-01 10:30 | CT_ITS ---
WS: [id number] CTA HEAD AND NECK TECHNIQUE: Contrast enhanced CTA of the head and neck with coronal and sagittal reformatted images an d maximum intensity projection (MIP) images. NASCET criteria utilized. CLINICAL INFORMATION: TIAs, syncopal episodes, Presyncope. COMPARISON: 2020 DLP: 1177.[address] scans at [facility] use at least one of these dose optimization techniques: automated e xposure control; mA and/or kV adjustment per patient size (includes targeted exams where dose is matc hed to clinical indication); or iterative reconstruction. FINDINGS: RIGHT: RIGHT common carotid artery is patent. Mild calcified atheromatous plaque RIGHT carotid bulb e xtending into the ICA. RIGHT ICA is patent to the skull base. No significant RIGHT ICA stenosis. LEFT: LEFT common carotid artery is patent. No significant LEFT ICA stenosis. LEFT ICA is patent to t he skull base. No significant LEFT ICA stenosis. Codominant and patent vertebral arteries bilaterally. Proximal basilar artery is patent. Normal vascu larity to the [employer] territory bilaterally. Both ICAs are patent at the skull base. Patent anterior communicating artery. Normal vascularity to t he BRIAN and MCA territories bilaterally. No evidence of proximal flow-limiting stenosis or aneurysm. Prominent RIGHT pretracheal lymph node measuring 9 mm in the upper mediastinum. Emphysematous changes in the lung apices. Thyroid gland appears normal. Mastoid air cells are well aerated. Mild mucosal thickening in the ethmoid air cells. Prominent bilat eral adenoids similar to 202. Mild spondylitic changes cervical spine. INTRACRANIAL CTA: CT/CT angio headneck* [id number] IMPRESSION: 1. Less than 50% RIGHT ICA stenosis with mild atheromatous plaque. 2. No significant LEFT ICA stenosis. 3. No evidence of intracranial flow-limiting stenosis. 4. Codominant and patent vertebral arteries bilaterally.
[2023-12-01] MEDS: iohexol 350 mg/mL 500 mL Btl (per mL) IV (10:39)
== END 2023-12-01 10:13 | disposition home or self-care (01) ==
LOC: RAD 10:12
PROVIDERS: PCP Family Medicine; Visit Provider Family Medicine
DX: R55 Syncope and collapse (principal); G45.9 Transient cerebral ischemic attack, unspecified; E11.9 Type 2 diabetes mellitus without complications; Z79.4 Long term (current) use of insulin; I10 Essential (primary) hypertension; E78.2 Mixed hyperlipidemia; J43.9 Emphysema, unspecified
CPT/HCPCS: 70496; 70498; Q9967

== ENCOUNTER → 2024-07-13 09:00 | Outpatient (BNVA) | payer OTHER, MEDICARE, SELFPAY | PROVIDERS: PCP Family Medicine; Visit Provider Family Medicine | DX: E11.9 Type 2 diabetes mellitus without complications (principal); Z79.4 Long term (current) use of insulin; Z13.6 Encounter for screening for cardiovascular disorders | CPT/HCPCS: 80053; 80061; 83036; 85025 ==

== ENCOUNTER 2024-11-09 11:11 | Outpatient (CLI) | payer OTHER, MEDICARE, SELFPAY ==
--- NOTE | 2024-11-09 11:14 | XRR_ITS ---
PROCEDURE INFORMATION: Exam: XR Lumbosacral Spine Exam date and time: 11/09/2024 11:34 AM Age: 59 years old Clinical indication: Pain; Lumbago with sciatica; Right; Additional info: Acute low back pain with right sided sciatica TECHNIQUE: Imaging protocol: Radiologic exam of the lumbosacral spine. Views: 2 or 3 views. COMPARISON: No relevant prior studies available. FINDINGS: Bones/joints: No fracture or malalignment. Vertebral body heights are maintained. No suspicious osseous lesion. Mild endplate spurs are present at L4 and L5. No disc height loss. Severe sclerosis involves the L4-L5 and L5-S1 facets. Soft tissues: Unremarkable. XR/XR lumbar spine 2-3V* [id number] IMPRESSION: 1. No fracture or malalignment. 2. Severe lower lumbar facet arthropathy.
== END 2024-11-09 11:12 | disposition home or self-care (01) ==
LOC: LAB 11:12 → RAD 11:13
PROVIDERS: PCP Family Medicine; Visit Provider Family Medicine
DX: M54.41 Lumbago with sciatica, right side (principal); M46.89 Other specified inflammatory spondylopathies, multiple sites in spine; M47.817 Spondylosis without myelopathy or radiculopathy, lumbosacral region
CPT/HCPCS: 72100

== ENCOUNTER 2024-11-28 11:04 | Outpatient (RCR) | payer OTHER, MEDICARE, SELFPAY | END 2024-11-29 23:59 | disposition home or self-care (01) | LOC: SPT 11:04 | PROVIDERS: PCP Family Medicine; Visit Provider Family Medicine | DX: M54.50 Low back pain, unspecified (principal) | CPT/HCPCS: 97161 ==

== ENCOUNTER → 2025-02-26 14:02 | Outpatient (BNVA) | payer OTHER, MEDICARE, SELFPAY | PROVIDERS: PCP Family Medicine; Visit Provider Family Medicine | DX: E11.8 Type 2 diabetes mellitus with unspecified complications (principal); Z79.4 Long term (current) use of insulin | CPT/HCPCS: 80053; 83036 ==